=== PATIENT | female | born 2000 | race African-American/Black ===

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

== ENCOUNTER → 2021-03-16 | Outpatient (CLI) | payer OTHER ==
--- NOTE | 2021-03-17 08:20 | MR ---
EXAMINATION TYPE: MR brain wo con DATE OF EXAM: 03/16/2021 COMPARISON: NONE HISTORY: Hallucinations A/V + tactile TECHNIQUE: Multiplanar, multisequence imaging of the brain and brainstem is performed without IV cont rast. FINDINGS: Diffusion weighted images demonstrate no evidence of a recent infarct or other diffusion abnormality. There is no extraaxial fluid collection or significant white matter signal abnormality. The ventricu lar system and cisternal spaces are normal in size and appearance. The brain volume is age appropria te. Midline structures demonstrate normal morphology. The cerebellar tonsils are slightly low-lying exte nding into foramen magnum but no greater than 5 mm inferior descent identified to diagnose Chiari typ e I malformation. Normal vascular flow voids are present. The visualized sinuses are clear. There is artifact at level of the bilateral globes. IMPRESSION: Slightly low-lying cerebellar tonsils without Chiari type I malformation
== END | disposition home or self-care (01) ==
LOC: RADMRIMAIN 18:33
PROVIDERS: ATTEND Family Medicine
DX: G93.5 Compression of brain (principal)
CPT/HCPCS: 70551

== ENCOUNTER 2021-04-07 18:24 | Inpatient (IN) | payer MEDICAID, OTHER ==
--- NOTE | 2021-04-07 21:40 | ED ---
General Adult HPI - General Chief complaint: Psychiatric Symptoms Stated complaint: Mental Health Time Seen by Provider: 04/07/21 20:54 Source: patient Mode of arrival: ambulatory Limitations: no limitations - History of Present Illness Initial comments: Dictation was produced using Piazza dictation software. please excuse any grammatical, word or spelling errors. Chief Complaint: 20-year-old female presents to the emergency department for depression or suicidal ideation History of Present Illness: Patient is a 20-year-old female she states she has a past medical history of schizophrenia. Over the last several days she's been feeling depressed. She states she's never been admitted to [facility]. in the past. Patient states she initially had a plan to harm herself but doesn't have a plan currently. She denies homicidality. Patient denies any visual or auditory hallucinations at this moment. Patient has no medical complaints. The ROS documented in this emergency department record has been reviewed and confirmed by me. Those systems with pertinent positive or negative responses have been documented in the HPI. All other systems are other negative and/or noncontributory. PHYSICAL EXAM: General Impression: Alert and oriented x3, not in acute distress HEENT: Normocephalic atraumatic, extra-ocular movements intact, pupils equal and reactive to light bilaterally, mucous membranes moist. Cardiovascular: Heart regular rate and rhythm Chest: Able to complete full sentences, no retractions, no tachypnea Musculoskeletal: Pulses present and equal in all extremities, no peripheral edema Motor: no focal deficits noted Neurological: CN II-XII grossly intact, no focal motor or sensory deficits noted Skin: Intact with no visualized rashes Psych: Normal affect and mood ED course: 20-year-old female presents to the emergency department for suicidal ideation. She reports history of schizophrenia. Vital signs On arrival are within acceptable limits. No medical complaints. Physical examination normal. Patient evaluated by EPS and admitted to inpatient psychiatry unit. - Related Data Previous Rx's Medication Instructions Recorded ARIPiprazole [Abilify] 5 mg PO DAILY 14 Days tab 04/13/21 DULoxetine HCL [Cymbalta] 60 mg PO DAILY 14 Days 04/13/21 Mirtazapine [Remeron] 7.5 mg PO HS 14 Days tab 04/13/21 Nicotine 21Mg/24Hr Patch [Habitrol] 1 patch TRANSDERM DAILY 14 Days 04/13/21 patch diphenhydrAMINE [Benadryl] 25 mg PO HS PRN 14 Days cap 04/13/21 hydrOXYzine pamoate [Vistaril] 25 mg PO TID PRN 14 Days cap 04/13/21 Allergies Allergy/AdvReac Type Severity Reaction Status Date / Time Penicillins Allergy Rash/Hives Verified 04/07/21 21:39 Review of Systems ROS Statement: Those systems with pertinent positive or pertinent negative responses have been documented in the HPI. ROS Other: All systems not noted in ROS Statement are negative. Past Medical History Past Medical History: Asthma History of Any Multi-Drug Resistant Organisms: None Reported Past Surgical History: No Surgical Hx Reported Past Anesthesia/Blood Transfusion Reactions: No Reported Reaction Past Psychological History: Anxiety, Depression, Schizophrenia Smoking Status: Former smoker Past Alcohol Use History: None Reported Past Drug Use History: None Reported General Exam Limitations: no limitations Course Vital Signs 04/07/21 19:33 Temperature 98.6 F Pulse Rate 89 Respiratory 18 Rate Blood Pressure 132/76 O2 Sat by Pulse 95 Oximetry Medical Decision Making - Lab Data Result diagrams: 04/09/21 07:00 Lab Results 04/07/21 04/08/21 Range/Units 22:38 01:25 Urine HCG, Qual Not Detected (Not Detectd) Coronavirus (PCR) Not Detected (Not Detectd) Disposition Clinical Impression: Depression Disposition: ADMITTED IP TO THIS HOSP Condition: Stable
[2021-04-08] MEDS ORDERED: ACETAMINOPHEN TAB 325 MG TAB PO PRN (04:00)
[2021-04-08] MEDS ORDERED: HALOPERIDOL LACTATE 5 MG/ML 1 ML VIAL IM PRN (04:00)
[2021-04-08] MEDS ORDERED: LORazepam 1 MG TAB PO PRN (04:00)
[2021-04-08] MEDS ORDERED: MAG HYDROX/AL HYDROX/SIMETH 30 ML CUP PO PRN (04:00)
[2021-04-08] MEDS ORDERED: MAGNESIUM HYDROXIDE 2,400 MG/10 ML CUP PO PRN (09:00)
[2021-04-08] MEDS: NICOTINE 21MG/24HR PATCH TRANSDERM SCH (11:41)
[2021-04-08] MEDS: haloperidoL 1 MG TAB PO PRN (13:16)
[2021-04-08] MEDS ORDERED: busPIRone HCl 5 MG TAB PO PRN (14:17)
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
[2021-04-08] MEDS: ARIPiprazole 5 MG TAB PO SCH (17:16)
[2021-04-08] MEDS ORDERED: MIRTAZAPINE 15 MG TAB PO SCH (21:00)
[2021-04-08] MEDS ORDERED: risperiDONE 0.5 MG TAB PO SCH (21:00)
--- NOTE | 2021-04-09 00:09 | P.CONS ---
History of Present Illness - Reason for Consult Consult date: 04/08/21 medical eval - Chief Complaint suicidal - History of Present Illness Myrtle Quiñones is a 20 yo F with PMH of psychosis, follows with [facility] who came to the ED on the recommendation of her radiological defense officer. She states she has been having suicidal feelings and that she would be better off now around as well as significant anxiety. She denies any physical symptoms today, no chest pain, dizziness, headache, vision change, shortness of breath. On presentation vitals stable, urine preg and Covid negative. Review of Systems All systems: negative Constitutional: Denies chills, Denies fever Eyes: denies blurred vision, denies pain Ears, nose, mouth and throat: Denies headache, Denies sore throat Cardiovascular: Denies chest pain, Denies shortness of breath Respiratory: Denies cough Gastrointestinal: Denies abdominal pain, Denies diarrhea, Denies nausea, Denies vomiting Genitourinary: Denies dysuria, Denies hematuria Musculoskeletal: Denies myalgias Integumentary: Denies pruritus, Denies rash Neurological: Denies numbness, Denies weakness Psychiatric: Reports as per HPI, Reports anxiety, Reports depression Endocrine: Denies fatigue, Denies weight change Past Medical History Past Medical History: Asthma History of Any Multi-Drug Resistant Organisms: None Reported Past Surgical History: No Surgical Hx Reported Past Anesthesia/Blood Transfusion Reactions: No Reported Reaction Past Psychological History: Anxiety, Depression, Schizophrenia Smoking Status: Vaper Past Alcohol Use History: None Reported Additional Past Alcohol Use History / Comment(s): Patient vaped for approximitley two months, stopped in August 2019 Past Drug Use History: None Reported Medications and Allergies Home Medications Medication Instructions Recorded Confirmed Type risperiDONE [RisperDAL] 0.5 mg PO HS 04/07/21 04/07/21 History Allergies Allergy/AdvReac Type Severity Reaction Status Date / Time Penicillins Allergy Rash/Hives Verified 04/07/21 21:39 Physical Exam Vitals: Vital Signs Temp Pulse Resp BP 04/08/21 06:05 97.8 F 76 16 118/58 General: well nourished, well developed, NAD. Vitals reviewed Eyes: PERRL, EOMI, conjunctiva normal HENT: normocephalic, mucus membranes moist Neck: supple, no JVD Lungs: normal respiratory effort, no wheezes or rales CV: Regular rate and rhythm, no murmur. Peripheral pulses 2+ Abdomen: soft, nondistended, no organomegaly Lymph: no cervical or axillary LAD Skin: warm and dry. Neuro: A&Ox3, flattened affect, poor eye contact Assessment and Plan Plan: 1. Suicidal, major depression. Management per psychiatry. Agree with everardo hall and [place]. Continue to follow
[2021-04-09 07:56] LABS: ALT 12 U/L (4-34); AST 25 U/L (14-36); African American GFR (CKD) >90 (>60 ml/min/1.73 sqM); Albumin 4.7 g/dL (3.5-5.0); Alkaline Phosphatase 61 U/L (38-126); Anion Gap 8 mmol/L; Blood Urea Nitrogen 10 mg/dL (7-17); Calcium 9.7 mg/dL (8.4-10.2); Carbon Dioxide 21 mmol/L (22-30); Chloride 107 mmol/L (98-107); Glucose 77 mg/dL (74-99); Non-African American GFR(CKD) >90 (>60 ml/min/1.73 sqM); Potassium 4.1 mmol/L (3.5-5.1); Sodium 136 mmol/L (137-145); Total Bilirubin 1.2 mg/dL (0.2-1.3); Total Protein 8.2 g/dL (6.3-8.2)
[2021-04-09] MEDS: NICOTINE 21MG/24HR PATCH TRANSDERM SCH (08:41)
[2021-04-09] MEDS: ARIPiprazole 5 MG TAB PO SCH (08:42)
[2021-04-09] MEDS ORDERED: ARIPiprazole 5 MG TAB PO ONE (09:59)
--- NOTE | 2021-04-09 13:13 | P.PN ---
Progress Note - Text Progress Note Date: 04/09/21 Interval History: Patient was seen wandering the hallways and was directable and agreeable to lorelei vargas with automobile service writer in the office. Patient appears to have an improvement in her hygiene and grooming today. She states that she has been going to some groups and attending to participate. She states that the hallucinations have improved significantly since being on the unit. She states that she is tolerating the Abilify fairly well at this time. She was agreeable have it increased to 5 mg today. Claims that she is feeling less irritable and more stable in terms of her mood. She continues to state that she does have anxiety during the day. She claims that she did not sleep well last night with the Remeron. She was agreeable to try trazodone tonight. Has a fair appetite. At this time patient denies any suicidal or homical ideations, intent or plan. Patient denies any auditory, visual hallucinations and denies any paranoia or delusions. Patient denies any side effects from the medications and has been compliant with meds. Mental Status Exam: General Appearance: Patient appears to be short in stature, curly hair, wearing glasses, nasal piercing, stated age is alert, directable, and attempts to cooperate. Patient appears to have fair hygiene and grooming. Behavior: Patient is seated without any agitated behavior. Attempts to cooperate. Speech: Patient's speech is fluent and nonpressured. Mood/Affect: Patient reports their mood is improving mildly, affect is congruent and constricted. Suicidality/Homicidality: Patient denies having any homicidal ideation intent or plan. Denies any suicidal ideations intent or plan Perceptions: Patient denies any visual hallucinations and denies any auditory hallucinations Though content/process: There is no evidence of any delusional thought content and thought process is linear and goal-directed. Focused on discharge. Memory and concentration: AOX3, grossly intact for the purposes of this session Judgment and insight: Chronically poor, improving mildly. IMPRESSIONS: Schizoaffective disorder, depressive type Generalized anxiety disorder Cannabis use disorder mild Nicotine dependence Plan: -Patient continues to meet criteria for inpatient psychiatric admission for symptom stabilization and safety. Patient has signed adult voluntary form and medication consent and was placed in patient's chart. -Medications: Increased Abilify to 5 mg daily for mood stabilization/psychosis. Discontinue Remeron and replaced with trazodone 50 mg daily at bedtime for insomnia/mood. BuSpar 15 mg 3 times a day when necessary for anxiety. -When necessary Ativan and Haldol for agitation/aggression. -NRT - nicotine patch -SW on board for discharge planning. Encouraged the patient to participate in milieu. likely discharge tomorrow back home.
[2021-04-09] MEDS ORDERED: traZODone HCL 50 MG TAB PO SCH (21:00)
[2021-04-10] MEDS: LORazepam 2 MG/ML INJ IM PRN (04:59)
[2021-04-10] MEDS: NICOTINE 21MG/24HR PATCH TRANSDERM SCH (08:01)
[2021-04-10] MEDS: ARIPiprazole 5 MG TAB PO SCH (08:01)
[2021-04-10] MEDS ORDERED: busPIRone HCl 5 MG TAB PO SCH (10:45)
--- NOTE | 2021-04-10 13:14 | P.PN ---
Progress Note - Text Progress Note Date: 04/10/21 Interval History: Patient was seen wandering the hallways and was directable and agreeable to sp alicia with machine sign writer in the office. Patient claims that she was feeling very anxious last night and got very poor sleep. She states that she required a injection dose of Ativan last night and only slept minimally afterwards. She claims that she is feeling irritable and was tearful at times during the interview. She claims that she feels the medications have not been helping. She has been going to some groups. She was demanding and argumentative with machine sign writer today and demanded to be discharged. She was tearful afterwards. She states that she saw "shadows in the bathroom" last night and was scared. She appears to have poor insight today and was more irritable. Has a fair appetite. At this time patient denies any suicidal or homical ideations, intent or plan. Patient denies any auditory and denies any paranoia or delusions. Patient denies any side effects from the medications and has been compliant with meds. Mental Status Exam: General Appearance: Patient appears to be short in stature, curly hair, wearing glasses, nasal piercing, stated age is alert, difficult to redirect today. Argumentative and demanding. Patient appears to have fair hygiene and grooming. Behavior: Patient is seated without any agitated behavior. Argumentative and demanding. Tearful. Speech: Patient's speech is fluent and nonpressured. Mood/Affect: Patient reports their mood is the same", affect is congruent Suicidality/Homicidality: Patient denies having any homicidal ideation intent or plan. Denies any suicidal ideations intent or plan Perceptions: Patient denies any visual hallucinations and denies any auditory hallucinations Though content/process: There is no evidence of any delusional thought content and thought process is linear and goal-directed. Focused on discharge. Poor insight. Memory and concentration: AOX3, grossly intact for the purposes of this session Judgment and insight: Chronically poor IMPRESSIONS: Schizoaffective disorder, depressive type Generalized anxiety disorder Cannabis use disorder mild Nicotine dependence Plan: -Patient continues to meet criteria for inpatient psychiatric admission for symptom stabilization and safety. Patient has signed adult voluntary form and medication consent and was placed in patient's chart. -Medications: Abilify 5 mg daily for mood stabilization/psychosis, can possibly be increased over the weekend to 7.5 mg if patient is still not stable with regards to mood or psychotic sx. increase trazodone 100 mg daily at bedtime for insomnia/mood. added benadryl 25 mg qhs prn for sleep. BuSpar 15 mg two times a day when necessary for anxiety. vistaril prn for anxiety. -When necessary Ativan and Haldol for agitation/aggression. -NRT - nicotine patch -SW on board for discharge planning. Encouraged the patient to participate in milieu. if patient improves over the weekend then likely d/c tuesday back home.
[2021-04-10] MEDS: hydrOXYzine pamoate 25 MG CAP PO PRN (14:54)
[2021-04-10] MEDS: DULoxetine HCL 30 MG CAPSULE.DR PO SCH (15:31)
[2021-04-10] MEDS: hydrOXYzine pamoate 25 MG CAP PO SCH ×2 (16:09→20:15)
[2021-04-10] MEDS ORDERED: traZODone HCL 100 MG TAB PO SCH (21:00)
[2021-04-10] MEDS ORDERED: diphenhydrAMINE 25 MG CAP PO SCH (21:00)
[2021-04-10] MEDS: diphenhydrAMINE 25 MG CAP PO PRN (21:59)
[2021-04-11] MEDS: NICOTINE 21MG/24HR PATCH TRANSDERM SCH (07:39)
[2021-04-11] MEDS: hydrOXYzine pamoate 25 MG CAP PO SCH ×3 (07:39→20:59)
[2021-04-11] MEDS: ARIPiprazole 5 MG TAB PO SCH (07:39)
[2021-04-11] MEDS: DULoxetine HCL 30 MG CAPSULE.DR PO SCH (07:39)
[2021-04-11] MEDS: hydrOXYzine pamoate 25 MG CAP PO PRN (12:03)
--- NOTE | 2021-04-11 13:29 | P.PN ---
Progress Note - Text Progress Note Date: 04/11/21 Interval history: Patient was seen and was directable and agreeable to speak with life underwriter. Reports some mood swings: Intermittent anger followed by happiness. Denies significant depression, anxiety, low appetite. Reports poor sleep, and states that 2 doses of benadryl did not help with sleep. At this time patient denies any suicidal or homicidal ideations intent or plan. Denies any Auditory or visual hallucinations. Patient denies any side effects from the medications and has been compliant with meds. Mental status exam: General Appearance: [Patient appears to be stated age is alert, directable, and cooperative.] Behavior: [No agitated behavior. Patient is calm and directable] Speech: Patient's speech is fluent and nonpressured. Mood/Affect: Mood is "calm", affect is congruent and constricted. Suicidality/Homicidality: Patient denies having any suicidal or homicidal ideation intent or plan. Perceptions: Patient denies any auditory or visual hallucinations. Though content/process: [There is no evidence of any delusional thought content and thought process is linear and goal-directed.] Memory and concentration: AOX3, grossly intact for the purposes of this session Judgment and insight: improving mildly Assessment/Plan: Continue with current diagnosis. Patient continues to meet criteria for inpatient psychiatric admission for symptom stabilization and safety. Med adjustments: d/c benadryl qhs and start mirtazapine 7.5 mg qhs Monitor for medication compliance and for any psychotropic medication side effects. Will continue to monitor ongoing response to treatment. Encouraged participation in milieu.
[2021-04-11] MEDS: MIRTAZAPINE 15 MG TAB PO SCH (20:59)
[2021-04-12] MEDS: NICOTINE 21MG/24HR PATCH TRANSDERM SCH (08:22)
[2021-04-12] MEDS: ARIPiprazole 5 MG TAB PO SCH (08:22)
[2021-04-12] MEDS: DULoxetine HCL 30 MG CAPSULE.DR PO SCH (08:22)
[2021-04-12] MEDS: hydrOXYzine pamoate 25 MG CAP PO SCH ×3 (08:22→19:40)
--- NOTE | 2021-04-12 11:40 | P.PN ---
Progress Note - Text Interval history: Patient was seen in the conference room and was directable and agreeable to speak with comic book writer. States that her anxiety, sleep sleep, and mood swings are improving. States that she slept very well with the mirtazapine.. At this time patient denies any suicidal or homicidal ideations intent or plan. Denies any Auditory or visual hallucinations. Patient denies any side effects from the medications and has been compliant with meds. Mental status exam: General Appearance: [Patient appears to be stated age is alert, directable, and cooperative.] Behavior: [No agitated behavior. Patient is calm and directable] Speech: Patient's speech is fluent and nonpressured. Mood/Affect: Mood is "good", affect is congruent and full range Suicidality/Homicidality: Patient denies having any suicidal or homicidal ideation intent or plan. Perceptions: Patient denies any auditory or visual hallucinations. Though content/process: [There is no evidence of any delusional thought content and thought process is linear and goal-directed.] Memory and concentration: AOX3, grossly intact for the purposes of this session Judgment and insight: improving mildly Assessment/Plan: Continue with current diagnosis. Patient continues to meet criteria for inpatient psychiatric admission for symptom stabilization and safety.[Patient will be maintained on current psychotropic medication regimen.] Monitor for medication compliance and for any psychotropic medication side effects. Will continue to monitor ongoing response to treatment. Encouraged participation in milieu.
[2021-04-12] MEDS: LORazepam 2 MG/ML INJ IM PRN ×2 (12:05→21:30)
[2021-04-12] MEDS: MIRTAZAPINE 15 MG TAB PO SCH (19:39)
[2021-04-12] MEDS: diphenhydrAMINE 25 MG CAP PO PRN (19:40)
[2021-04-12] MEDS: hydrOXYzine pamoate 25 MG CAP PO PRN (20:46)
[2021-04-12] MEDS: haloperidoL 1 MG TAB PO PRN (20:46)
[2021-04-13 07:05] VITALS: BP 108/55; PULSE 73; RESP 16; TEMP 97.6
[2021-04-13] MEDS: NICOTINE 21MG/24HR PATCH TRANSDERM SCH (08:41)
[2021-04-13] MEDS: ARIPiprazole 5 MG TAB PO SCH (08:41)
[2021-04-13] MEDS: hydrOXYzine pamoate 25 MG CAP PO SCH (09:04)
[2021-04-13] MEDS: DULoxetine HCL 30 MG CAPSULE.DR PO SCH (09:05)
[2021-04-13] MEDS ORDERED: DULoxetine HCL 30 MG CAPSULE.DR PO ONE (10:34)
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
[2021-04-14] MEDS ORDERED: DULoxetine HCL 60 MG CAPSULE.DR PO SCH (09:00)
== END 2021-04-13 12:39 | disposition home or self-care (01) | DRG 885 ==
LOC: EC 18:24 → 3MHU 04-08 02:11
PROVIDERS: ADMIT Psychiatry & Neurology Psychiatry; ATTEND Psychiatry & Neurology Psychiatry
DX: F25.1 Schizoaffective disorder, depressive type (principal); R45.851 Suicidal ideations; F60.89 Other specific personality disorders; Z20.822 Contact with and (suspected) exposure to COVID-19; F41.0 Panic disorder [episodic paroxysmal anxiety]; F41.1 Generalized anxiety disorder; F12.10 Cannabis abuse, uncomplicated; J45.909 Unspecified asthma, uncomplicated; F17.290 Nicotine dependence, other tobacco product, uncomplicated; Z79.899 Other long term (current) drug therapy; Z65.3 Problems related to other legal circumstances; Z71.51 Drug abuse counseling and surveillance of drug abuser; Z71.41 Alcohol abuse counseling and surveillance of alcoholic; Z88.0 Allergy status to penicillin; Z81.8 Family history of other mental and behavioral disorders
CPT/HCPCS: 80053; 81025; 82075; 83036; 84443; 87635; 99285

== ENCOUNTER 2021-05-06 07:31 | Emergency (ER) | payer OTHER ==
[2021-05-06 07:36] VITALS: BP 141/96; PULSE 50; RESP 18; TEMP 97
[2021-05-06] MEDS ORDERED: LIDOCAINE 1% INJ 10MG/ML (20 ML MDV) SQ ONE (07:43)
[2021-05-06] MEDS ORDERED: BACITRACIN OINT 1 EACH PACKET TOPICAL ONE (07:44)
--- NOTE | 2021-05-06 08:12 | XR ---
EXAMINATION TYPE: XR forearm RT DATE OF EXAM: 05/06/2021 CLINICAL HISTORY: Pain and laceration after fall injury. TECHNIQUE: Two views of the right forearm are obtained. COMPARISON: None. FINDINGS: Linear lucency consistent with laceration injury along the radial volar surface of the dist al forearm with punctate densities possible soft tissue foreign bodies is identified. There is no acu te fracture or dislocation seen in the right radius or ulna. The right elbow and wrist joints appear within normal limits. IMPRESSION: As above.
--- NOTE | 2021-05-06 08:24 | ED ---
Wound/Laceration HPI - General Chief Complaint: Wound/Laceration Stated Complaint: Fall/Rt Arm Lac Time Seen by Provider: 05/06/21 07:40 Source: patient, RN notes reviewed Mode of arrival: ambulatory Limitations: no limitations - History of Present Illness Initial Comments: 20-year-old female presents emergency Department with chief complaint of laceration, fall. She states that she has a broken railing on her. States that she slipped causing a laceration to her right forearm her tetanus is up-to-date. Patient states is a large laceration to her right wrist she has no paresthesias she does have full range of motion she denies any other associated injury including head injury, neck pain, back pain, hip pain. She does have an abrasion to her left foot fourth and fifth digit. - Related Data Previous Rx's Medication Instructions Recorded ARIPiprazole [Abilify] 5 mg PO DAILY 14 Days tab 04/13/21 DULoxetine HCL [Cymbalta] 60 mg PO DAILY 14 Days 04/13/21 Mirtazapine [Remeron] 7.5 mg PO HS 14 Days tab 04/13/21 Nicotine 21Mg/24Hr Patch [Habitrol] 1 patch TRANSDERM DAILY 14 Days 04/13/21 patch diphenhydrAMINE [Benadryl] 25 mg PO HS PRN 14 Days cap 04/13/21 hydrOXYzine pamoate [Vistaril] 25 mg PO TID PRN 14 Days cap 04/13/21 Allergies Allergy/AdvReac Type Severity Reaction Status Date / Time Penicillins Allergy Rash/Hives Verified 05/06/21 07:36 Review of Systems ROS Statement: Those systems with pertinent positive or pertinent negative responses have been documented in the HPI. ROS Other: All systems not noted in ROS Statement are negative. Past Medical History Past Medical History: Asthma History of Any Multi-Drug Resistant Organisms: None Reported Past Surgical History: No Surgical Hx Reported Past Anesthesia/Blood Transfusion Reactions: No Reported Reaction Past Psychological History: Anxiety, Depression, Schizophrenia Smoking Status: Former smoker Past Alcohol Use History: None Reported Past Drug Use History: None Reported General Exam Limitations: no limitations General appearance: alert, in no apparent distress Head exam: Present: atraumatic, normocephalic, normal inspection Eye exam: Present: normal appearance, PERRL, EOMI. Absent: scleral icterus, conjunctival injection, periorbital swelling ENT exam: Present: normal exam, mucous membranes moist Neck exam: Present: normal inspection, full ROM. Absent: tenderness, meningismus, lymphadenopathy Respiratory exam: Present: normal lung sounds bilaterally. Absent: respiratory distress, wheezes, rales, rhonchi, stridor Cardiovascular Exam: Present: regular rate, normal rhythm, normal heart sounds. Absent: systolic murmur, diastolic murmur, rubs, gallop, clicks Extremities exam: Present: other (Left foot fourth and fifth digit there is skin avulsion, abrasion noted, right distal forearm there is a 4 cm very irregular laceration with no tendon involvement patient is full range of motion of all digits, wrist.) Back exam: Present: full ROM. Absent: tenderness, paraspinal tenderness, vertebral tenderness Neurological exam: Present: alert, oriented X3, CN II-XII intact Skin exam: Present: warm, dry, intact, normal color. Absent: rash Course Vital Signs 05/06/21 07:32 Temperature 97.0 F L Pulse Rate 50 L Respiratory 18 Rate Blood Pressure 141/96 O2 Sat by Pulse 100 Oximetry Procedures - Laceration Laceration #1 Consent Obtained: verbal consent Indication: laceration Site: upper extremity (Right forearm) Size (cm): 4 Description: irregular, foreign body Depth: simple, single layer Anesthetic Used: lidocaine 1%, without epi Anesthesia Technique: local infiltration Amount (mls): 6 Pre-repair: wound explored, irrigated extensively, deep structures intact, foreign body removed (Small paint chips at surface were removed, wound was thoroughly cleaned) Type of Sutures: nylon Size of Sutures: 4-0 Number of Sutures: 7 Technique: simple, interrupted Patient Tolerated Procedure: well, no complications Medical Decision Making - Medical Decision Making Laceration was thoroughly cleaned, irrigated, foreign bodies were removed as seen an x-ray patient laceration was closed using sutures patient provided wound care instructions and return parameters. Disposition Clinical Impression: Laceration of right forearm Disposition: HOME SELF-CARE Condition: Stable Instructions (If sedation given, give patient instructions): Care For Your Stitches (ED), Laceration (ED) Additional Instructions: Have sutures removed in 10-14 days Please return to the Emergency Department if symptoms worsen or any other concerns. Is patient prescribed a controlled substance at d/c from ED?: No Referrals: Patti Prakash MD [Primary Care Provider] - 1-2 days Time of Disposition: 08:24
[2021-05-06] MEDS ORDERED: DIPH,PERTUS(ACELL)TETVAC-LF 0.5 ML VIAL IM ONE (09:41)
== END 2021-05-06 08:30 | disposition home or self-care (01) ==
LOC: EC 07:31
DX: S51.811A Laceration without foreign body of right forearm, initial encounter (principal); J45.909 Unspecified asthma, uncomplicated; F41.9 Anxiety disorder, unspecified; F32.A Depression, unspecified; F25.9 Schizoaffective disorder, unspecified; Z87.891 Personal history of nicotine dependence; Z88.0 Allergy status to penicillin; W01.0XXA Fall on same level from slipping, tripping and stumbling without subsequent striking against object, initial encounter
CPT/HCPCS: 99283; 12032; 73090; J2001

== ENCOUNTER 2021-06-18 10:26 | Emergency (ER) | payer OTHER ==
[2021-06-18 10:35] VITALS: RESP 16; TEMP 97.7
[2021-06-18] MEDS ORDERED: SODIUM CHLORIDE 0.9% 1,000 ML IV STA (10:55)
[2021-06-18] MEDS ORDERED: LORazepam 1 MG TAB PO STA (10:58)
--- NOTE | 2021-06-18 11:30 | ED ---
Dizziness HPI - General Chief Complaint: Syncope Stated Complaint: dizziness Time Seen by Provider: 06/18/21 10:44 Source: patient, family, EMS, RN notes reviewed Mode of arrival: EMS Limitations: no limitations - History of Present Illness Initial Comments: This is a 20-year-old female who presents the emergency department for a near- syncopal episode. States that she has these episodes at least twice a week, and this has been a long-standing problem. When these episodes occur, she experiences ringing in her ears, lightheadedness, dizziness, and visual changes. Dizziness does not change with position and she denies any room spinning sensations. She also feels shortness of breath and has palpitations with these episodes. These episodes always last different amounts of time, this episode lasted approximately 4.5 minutes. States that when she has these episodes, she does almost pass out. He did have an MRI of her brain on 03/16/2021 for these symptoms. This revealed slightly low lying cerebellar tonsils, without Chiari type one malformation. She does have follow-up appointments with neurology to have additional testing on an outpatient basis. About 3 months ago, she wore a Holter monitor. She was told that her heart rate is slow in the morning, but was otherwise unremarkable. Overall, this episode was not any worse than prior episodes. Denies any fevers, chills, sore throat, cough, dyspnea, chest pain, palpitations, abdominal pain, nausea, vomiting, diarrhea, back pain, or headaches. MD Complaint: dizziness, lightheadedness, near syncope Timing: sudden onset Description: lightheadedness History of Same: Yes History of Trauma: No - Related Data Home Medications Medication Instructions Recorded Confirmed QUEtiapine FUMARATE [SEROquel XR] 300 mg PO HS 06/18/21 06/18/21 Topiramate [Topamax] 25 mg PO DAILY 06/18/21 06/18/21 hydrOXYzine pamoate [Vistaril] 25 - 50 mg PO TID PRN 06/18/21 06/18/21 Allergies Allergy/AdvReac Type Severity Reaction Status Date / Time Penicillins Allergy Rash/Hives Verified 06/18/21 10:35 Review of Systems ROS Statement: Those systems with pertinent positive or pertinent negative responses have been documented in the HPI. ROS Other: All systems not noted in ROS Statement are negative. Past Medical History Past Medical History: Asthma History of Any Multi-Drug Resistant Organisms: None Reported Past Surgical History: No Surgical Hx Reported Past Anesthesia/Blood Transfusion Reactions: No Reported Reaction Past Psychological History: Anxiety, Depression, Schizophrenia Smoking Status: Former smoker Past Alcohol Use History: None Reported Past Drug Use History: Marijuana General Exam Limitations: no limitations General appearance: alert, other (Drowsy) Head exam: Present: atraumatic, normocephalic, normal inspection Neck exam: Present: normal inspection. Absent: tenderness, meningismus, lymphadenopathy Respiratory exam: Present: normal lung sounds bilaterally. Absent: respiratory distress, wheezes, rales, rhonchi, stridor Cardiovascular Exam: Present: regular rate, normal rhythm, normal heart sounds. Absent: systolic murmur, diastolic murmur, rubs, gallop, clicks Neurological exam: Present: alert, oriented X3, CN II-XII intact Psychiatric exam: Present: normal mood, flat affect Skin exam: Present: warm, dry, intact, normal color. Absent: rash Course Vital Signs 06/18/21 06/18/21 10:27 12:34 Temperature 97.7 F Pulse Rate 59 L 59 L Respiratory 16 16 Rate Blood Pressure 111/58 111/58 O2 Sat by Pulse 99 99 Oximetry EKG Findings - EKG Comments: EKG Findings:: Sinus bradycardia. Ventricular rate 58 bpm, MD interval 159 ms, QRS duration 86 ms, QTC 431 ms. Medical Decision Making - Medical Decision Making This is a 20-year-old female who presents to the emergency department for a near syncopal episode. This is an ongoing and chronic issue for the patient, and today symptoms were not any worse than usual. Her potassium was low at 3.1. Potassium replaced with 20 mEq PO. Chest x-ray revealed no abnormalities. Lab work does revealed an elevated d-dimer. CTA of the chest obtained. This revealed no actionable findings. Patient advised that the workup at this time did not reveal any cause of her ongoing symptoms. She is advised to follow-up with her primary care provider and neurologist as an outpatient for more in de pth testing. Return precautions reviewed in depth, the patient is instructed to return to the emergency department with any new, worsening, or concerning symptoms. Patient verbalized understanding. This case was discussed in detail with the attending ED physician. Presentation, findings, and treatment plan discussed in detail as well. - Lab Data Result diagrams: 06/18/21 11:09 Lab Results 06/18/21 06/18/21 06/18/21 Range/Units 11:00 11:09 11:09 PT 10.8 (9.0-12.0) sec INR 1.0 (<1.2) APTT 20.2 L (22.0-30.0) sec D-Dimer 0.64 H (<0.60) mg/L FEU Sodium 138 (137-145) mmol/L Potassium 3.1 L (3.5-5.1) mmol/L Chloride 105 (98-107) mmol/L Carbon Dioxide 21 L (22-30) mmol/L Anion Gap 12 mmol/L BUN 6 L (7-17) mg/dL Creatinine 0.57 (0.52-1.04) mg/dL Est GFR (CKD-EPI)AfAm >90 (>60 ml/min/1.73 sqM) Est GFR (CKD-EPI)NonAf >90 (>60 ml/min/1.73 sqM) Glucose 126 H (74-99) mg/dL Calcium 8.7 (8.4-10.2) mg/dL Total Bilirubin 0.4 (0.2-1.3) mg/dL AST 25 (14-36) U/L ALT 13 (4-34) U/L Alkaline Phosphatase 71 (38-126) U/L Troponin I (0.000-0.034) ng/mL Total Protein 7.2 (6.3-8.2) g/dL Albumin 4.3 (3.5-5.0) g/dL TSH 2.430 (0.465-4.680) mIU/L Urine Color Urine Appearance (Clear) Urine pH (5.0-8.0) Ur Specific Trevor (1.001-1.035) Urine Protein (Negative) Urine Glucose (UA) (Negative) Urine Ketones (Negative) Urine Blood (Negative) Urine Nitrite (Negative) Urine Bilirubin (Negative) Urine Urobilinogen (<2.0) mg/dL Ur Leukocyte Esterase (Negative) Urine RBC (0-5) /hpf Urine WBC (0-5) /hpf Ur Squamous Epith Cells (0-4) /hpf Urine Bacteria (None) /hpf Urine Mucus (None) /hpf Urine HCG, Qual (Not Detectd) Urine Opiates Screen Not Detected (NotDetected) Ur Oxycodone Screen Not Detected (NotDetected) Urine Methadone Screen Not Detected (NotDetected) Ur Propoxyphene Screen Not Detected (NotDetected) Ur Barbiturates Screen Not Detected (NotDetected) U Tricyclic Antidepress Detected H (NotDetected) Ur Phencyclidine Scrn Not Detected (NotDetected) Ur Amphetamines Screen Not Detected (NotDetected) U Methamphetamines Scrn Not Detected (NotDetected) U Benzodiazepines Scrn Not Detected (NotDetected) Urine Cocaine Screen Not Detected (NotDetected) U Marijuana (THC) Screen Detected H (NotDetected) Coronavirus (PCR) (Not Detectd) 06/18/21 06/18/21 06/18/21 Range/Units 11:09 11:09 11:09 PT (9.0-12.0) sec INR (<1.2) APTT (22.0-30.0) sec D-Dimer (<0.60) mg/L FEU Sodium (137-145) mmol/L Potassium (3.5-5.1) mmol/L Chloride (98-107) mmol/L Carbon Dioxide (22-30) mmol/L Anion Gap mmol/L BUN (7-17) mg/dL Creatinine (0.52-1.04) mg/dL Est GFR (CKD-EPI)AfAm (>60 ml/min/1.73 sqM) Est GFR (CKD-EPI)NonAf (>60 ml/min/1.73 sqM) Glucose (74-99) mg/dL Calcium (8.4-10.2) mg/dL Total Bilirubin (0.2-1.3) mg/dL AST (14-36) U/L ALT (4-34) U/L Alkaline Phosphatase (38-126) U/L Troponin I <0.012 (0.000-0.034) ng/mL Total Protein (6.3-8.2) g/dL Albumin (3.5-5.0) g/dL TSH (0.465-4.680) mIU/L Urine Color Yellow Urine Appearance Clear (Clear) Urine pH 6.5 (5.0-8.0) Ur Specific Trevor 1.017 (1.001-1.035) Urine Protein Trace H (Negative) Urine Glucose (UA) Negative (Negative) Urine Ketones Negative (Negative) Urine Blood Large H (Negative) Urine Nitrite Negative (Negative) Urine Bilirubin Negative (Negative) Urine Urobilinogen <2.0 (<2.0) mg/dL Ur Leukocyte Esterase Trace H (Negative) Urine RBC 1 (0-5) /hpf Urine WBC 3 (0-5) /hpf Ur Squamous Epith Cells 2 (0-4) /hpf Urine Bacteria Rare H (None) /hpf Urine Mucus Few H (None) /hpf Urine HCG, Qual Not Detected (Not Detectd) Urine Opiates Screen (NotDetected) Ur Oxycodone Screen (NotDetected) Urine Methadone Screen (NotDetected) Ur Propoxyphene Screen (NotDetected) Ur Barbiturates Screen (NotDetected) U Tricyclic Antidepress (NotDetected) Ur Phencyclidine Scrn (NotDetected) Ur Amphetamines Screen (NotDetected) U Methamphetamines Scrn (NotDetected) U Benzodiazepines Scrn (NotDetected) Urine Cocaine Screen (NotDetected) U Marijuana (THC) Screen (NotDetected) Coronavirus (PCR) (Not Detectd) 06/18/21 Range/Units 11:09 PT (9.0-12.0) sec INR (<1.2) APTT (22.0-30.0) sec D-Dimer (<0.60) mg/L FEU Sodium (137-145) mmol/L Potassium (3.5-5.1) mmol/L Chloride (98-107) mmol/L Carbon Dioxide (22-30) mmol/L Anion Gap mmol/L BUN (7-17) mg/dL Creatinine (0.52-1.04) mg/dL Est GFR (CKD-EPI)AfAm (>60 ml/min/1.73 sqM) Est GFR (CKD-EPI)NonAf (>60 ml/min/1.73 sqM) Glucose (74-99) mg/dL Calcium (8.4-10.2) mg/dL Total Bilirubin (0.2-1.3) mg/dL AST (14-36) U/L ALT (4-34) U/L Alkaline Phosphatase (38-126) U/L Troponin I (0.000-0.034) ng/mL Total Protein (6.3-8.2) g/dL Albumin (3.5-5.0) g/dL TSH (0.465-4.680) mIU/L Urine Color Urine Appearance (Clear) Urine pH (5.0-8.0) Ur Specific Trevor (1.001-1.035) Urine Protein (Negative) Urine Glucose (UA) (Negative) Urine Ketones (Negative) Urine Blood (Negative) Urine Nitrite (Negative) Urine Bilirubin (Negative) Urine Urobilinogen (<2.0) mg/dL Ur Leukocyte Esterase (Negative) Urine RBC (0-5) /hpf Urine WBC (0-5) /hpf Ur Squamous Epith Cells (0-4) /hpf Urine Bacteria (None) /hpf Urine Mucus (None) /hpf Urine HCG, Qual (Not Detectd) Urine Opiates Screen (NotDetected) Ur Oxycodone Screen (NotDetected) Urine Methadone Screen (NotDetected) Ur Propoxyphene Screen (NotDetected) Ur Barbiturates Screen (NotDetected) U Tricyclic Antidepress (NotDetected) Ur Phencyclidine Scrn (NotDetected) Ur Amphetamines Screen (NotDetected) U Methamphetamines Scrn (NotDetected) U Benzodiazepines Scrn (NotDetected) Urine Cocaine Screen (NotDetected) U Marijuana (THC) Screen (NotDetected) Coronavirus (PCR) Not Detected (Not Detectd) - Radiology Data Radiology results: report reviewed, image reviewed Disposition Clinical Impression: Dizziness, Near syncope Disposition: HOME SELF-CARE Instructions (If sedation given, give patient instructions): Near Syncope (ED), Lightheadedness (ED), Meniere Disease (ED), Vertigo (ED), Dizziness (ED) Additional Instructions: Return to the emergency department with any new, worsening, or concerning symptoms. Follow through with outpatient neurology testing. Follow up with your primary care provider in 1-2 days. Is patient prescribed a controlled substance at d/c from ED?: No Referrals: Patti Prakash MD [Primary Care Provider] - 1-2 days
[2021-06-18 11:58] LABS: ALT 13 U/L (4-34); AST 25 U/L (14-36); African American GFR (CKD) >90 (>60 ml/min/1.73 sqM); Albumin 4.3 g/dL (3.5-5.0); Alkaline Phosphatase 71 U/L (38-126); Anion Gap 12 mmol/L; Blood Urea Nitrogen 6 mg/dL (7-17); Calcium 8.7 mg/dL (8.4-10.2); Carbon Dioxide 21 mmol/L (22-30); Chloride 105 mmol/L (98-107); Glucose 126 mg/dL (74-99); Non-African American GFR(CKD) >90 (>60 ml/min/1.73 sqM); Potassium 3.1 mmol/L (3.5-5.1); Sodium 138 mmol/L (137-145); Total Bilirubin 0.4 mg/dL (0.2-1.3); Total Protein 7.2 g/dL (6.3-8.2)
[2021-06-18] MEDS ORDERED: POTASSIUM BICARBONATE/CIT AC 20 MEQ TABLET.EFF PO ONE (11:58)
[2021-06-18 12:05] LABS: Prothrombin Time 10.8 sec (9.0-12.0)
--- NOTE | 2021-06-18 12:07 | XR ---
EXAMINATION TYPE: XR chest 2V DATE OF EXAM: 06/18/2021 COMPARISON: 01/10/2018 TECHNIQUE: PA and lateral views submitted. HISTORY: Fever FINDINGS: The lungs are clear and there is no pneumothorax, pleural effusion, or focal pneumonia. Heart size normal. No overt failure. Interstitium stable from prior exam. IMPRESSION: 1. No acute process.
[2021-06-18 12:13] LABS: Appearance,Urine Clear (Clear); Bacteria,Urine Rare /hpf; Bilirubin,Urine Negative (Negative); Blood,Urine Large (Negative); Color,Urine Yellow; Glucose,Urine (UA) Negative (Negative); Ketones,Urine Negative (Negative); Leukocyte Esterase,Urine Trace (Negative); Mucus,Urine Few /hpf; Nitrite,Urine Negative (Negative); PH, Urine 6.5 (5.0-8.0); Protein,Urine Trace (Negative); RBC,Urine 1 /hpf (0-5); Specific Gravity,Urine 1.017 (1.001-1.035); Squamous Epithelial Cell,Urine 2 /hpf (0-4); Urobilinogen,Urine <2.0 mg/dL (<2.0); WBC,Urine 3 /hpf (0-5)
[2021-06-18 12:16] LABS: Partial Thromboplastin Time 20.2 sec (22.0-30.0)
[2021-06-18 12:45] LABS: Amphetamine Screen,Urine Not Detected (NotDetected); Barbiturate Screen,Urine Not Detected (NotDetected); Benzodiazepines Screen,Urine Not Detected (NotDetected); Cocaine Screen,Urine Not Detected (NotDetected); Methadone Screen, Urine Not Detected (NotDetected); Opiate Screen,Urine Not Detected (NotDetected); Oxycodone Screen, Urine Not Detected (NotDetected); Phencyclidine Screen,Urine Not Detected (NotDetected); Tricyclic Antidepressant,Urine Detected (NotDetected); Urn Cannabinoid Scrn Detected (NotDetected)
--- NOTE | 2021-06-18 13:40 | CT ---
EXAMINATION TYPE: CT chest angio for PE DATE OF EXAM: 06/18/2021 COMPARISON: No previous CT scan is available for comparison HISTORY: Dizziness, chest pains, elevated d-dimer CT DLP: 251.9 mGy.cm. Automated Exposure Control for Dose Reduction was Utilized. TECHNIQUE AND CONTRAST: CTA scan of the thorax is performed with IV Contrast, patient injected with 100, wasted 37 mL of Isov ue 370, pulmonary angiogram protocol. MIP Images are created on an independent workstation and revi ewed. FINDINGS: Artifactual images. No definite filling defect within the pulmonary trunk, main pulmonary arteries, l obar, segmental and proximal subsegmental branches to suggest pulmonary embolism. Distal subsegmental branches are suboptimally assessed. No gross cardiomegaly. Scattered subcentimeter bilateral axillary lymph nodes. Subcarinal soft tissue thickening and to a le sser extent hilar thickening, possibly due to underlying lymphadenopathy, suboptimally assessed by th is CT scan. Follow-up CT scan in 2-3 months can be considered if clinically required. Unremarkable lungs. Patent trachea and main bronchi. No pleural or pericardial effusion. Unremarkable upper abdomen. T3 and T4 upper endplate depression with minimal sclerotic changes, likely chronic, p lease correlate clinically. Unremarkable remainder of the visualized bones. IMPRESSION: With the limitation of the artifactual images, no major or central pulmonary embolism. Incidental fin dings and recommendations as detailed above.
[2021-06-18 13:51] VITALS: BP 100/53; PULSE 68
== END 2021-06-18 14:30 | disposition home or self-care (01) ==
LOC: EC 10:26
DX: R42 Dizziness and giddiness (principal); R55 Syncope and collapse; R79.1 Abnormal coagulation profile; J45.909 Unspecified asthma, uncomplicated; Z87.891 Personal history of nicotine dependence; Z88.0 Allergy status to penicillin; Z20.822 Contact with and (suspected) exposure to COVID-19
CPT/HCPCS: 36415; 93005; 85379; 80053; 84443; 84484; 85610; 85730; 81001; 81025; 80306; 87635; 71046; 71275; 99284; 96360; Q9967

== ENCOUNTER 2021-07-09 13:58 | Emergency (ER) | payer OTHER ==
[2021-07-09 14:15] VITALS: BP 120/72; PULSE 83; RESP 18; TEMP 98
[2021-07-09] MEDS ORDERED: DEXAMETHASONE SOD PHOSPHATE 10 MG/ML 1 ML VIAL IV STA (15:06)
[2021-07-09] MEDS ORDERED: SODIUM CHLORIDE 0.9% 1,000 ML IV STA (15:06)
[2021-07-09] MEDS ORDERED: diphenhydrAMINE 50 MG/ML 1 ML VIAL IVP STA (15:06)
[2021-07-09] MEDS ORDERED: KETOROLAC 15 MG/ML 1 ML VIAL IVP STA (15:06)
[2021-07-09] MEDS ORDERED: METOCLOPRAMIDE 5 MG/ML 2 ML VIAL IVP STA (15:06)
[2021-07-09 15:42] LABS: Basophils % (A) 0 %; Eosinophils % (A) 1 %; HCT 37.5 % (34.0-46.0); HGB 11.9 gm/dL (11.4-16.0); Lymphocytes # (A) 1.7 k/uL (1.0-4.8); Lymphocytes % (A) 34 %; MCH 28.6 pg (25.0-35.0); MCHC 31.7 g/dL (31.0-37.0); Mean Platelet Volume 8.8; Monocytes # (A) 0.5 k/uL (0-1.0); Monocytes % (A) 9 %; Neutrophils # (A) 2.8 k/uL (1.3-7.7); Neutrophils % (A) 55 %; Platelet Count 177 k/uL (150-450); RBC 4.17 m/uL (3.80-5.40); RDW 14.9 % (11.5-15.5); WBC 5.2 k/uL (4.0-11.0)
--- NOTE | 2021-07-09 15:44 | ED ---
Headache HPI - General Chief Complaint: Headache Stated Complaint: Headache,Dizziness Time Seen by Provider: 07/09/21 14:56 Mode of arrival: ambulatory Limitations: no limitations - History of Present Illness Initial Comments: Patient is a 20-year-old female presents to the emergency department with a chief complaint of migraine headache. Patient states her symptoms started this morning. Before the headache patient endorsed dizziness as if the room is spinning which has since resolved. Patient did not lose consciousness. Patient reports a headache in the back of her head, typical of her migraines. Patient sees a neurologist for the first time on July 14. Patient states she recently had an MRI of her brain due to the headaches which she states was negative for chiari 1 malformation. Denies fever, chills, upper respiratory symptoms, shortness of breath, chest pain, and other other concerns. - Related Data Home Medications Medication Instructions Recorded Confirmed QUEtiapine FUMARATE [SEROquel XR] 300 mg PO HS 06/18/21 06/18/21 Topiramate [Topamax] 25 mg PO DAILY 06/18/21 06/18/21 hydrOXYzine pamoate [Vistaril] 25 - 50 mg PO TID PRN 06/18/21 06/18/21 Allergies Allergy/AdvReac Type Severity Reaction Status Date / Time Penicillins Allergy Rash/Hives Verified 06/18/21 10:35 Review of Systems ROS Statement: Those systems with pertinent positive or pertinent negative responses have been documented in the HPI. ROS Other: All systems not noted in ROS Statement are negative. Past Medical History Past Medical History: Asthma History of Any Multi-Drug Resistant Organisms: None Reported Past Surgical History: No Surgical Hx Reported Past Anesthesia/Blood Transfusion Reactions: No Reported Reaction Past Psychological History: Anxiety, Depression, Schizophrenia Smoking Status: Vaper Past Alcohol Use History: None Reported Past Drug Use History: Marijuana General Exam Limitations: no limitations General appearance: alert, in no apparent distress Head exam: Present: atraumatic, normocephalic, normal inspection Eye exam: Present: normal appearance, PERRL, EOMI. Absent: scleral icterus, conjunctival injection, periorbital swelling Neck exam: Present: normal inspection. Absent: tenderness, meningismus, lymphadenopathy Respiratory exam: Present: normal lung sounds bilaterally. Absent: respiratory distress, wheezes, rales, rhonchi, stridor Cardiovascular Exam: Present: regular rate, normal rhythm, normal heart sounds. Absent: systolic murmur, diastolic murmur, rubs, gallop, clicks GI/Abdominal exam: Present: soft, normal bowel sounds. Absent: distended, tenderness, guarding, rebound, rigid Neurological exam: Present: alert, oriented X3, CN II-XII intact Psychiatric exam: Present: normal affect, normal mood Skin exam: Present: warm, dry, intact, normal color. Absent: rash Course Vital Signs 07/09/21 14:12 Temperature 98.0 F Pulse Rate 83 Respiratory 18 Rate Blood Pressure 120/72 O2 Sat by Pulse 98 Oximetry Medical Decision Making - Medical Decision Making This is a 20-year-old who presents for migraine headache. Thorough history and examination were performed. Patient had an episode of dizziness before the headache. She is well-appearing. I will obtain laboratory studies and EKG. EKG shows sinus rhythm. Laboratory studies are unremarkable. Patient given migraine cocktail and fluid bolus. On reevaluation she reports pain has significantly improved. Patient will be discharged home with instruction to follow up at her neurology appointment as scheduled on July 14. Return parameters discussed. Patient verbalizes understanding and is agreeable to this plan. Dr. Maciel is my attending. - Lab Data Result diagrams: 07/09/21 15:19 07/09/21 15:19 Lab Results 07/09/21 07/09/21 Range/Units 15:19 15:19 WBC 5.2 (4.0-11.0) k/uL RBC 4.17 (3.80-5.40) m/uL Hgb 11.9 (11.4-16.0) gm/dL Hct 37.5 (34.0-46.0) % MCV 90.0 (80.0-100.0) fL MCH 28.6 (25.0-35.0) pg MCHC 31.7 (31.0-37.0) g/dL RDW 14.9 (11.5-15.5) % Plt Count 177 (150-450) k/uL MPV 8.8 Neutrophils % 55 % Lymphocytes % 34 % Monocytes % 9 % Eosinophils % 1 % Basophils % 0 % Neutrophils # 2.8 (1.3-7.7) k/uL Lymphocytes # 1.7 (1.0-4.8) k/uL Monocytes # 0.5 (0-1.0) k/uL Eosinophils # 0.0 (0-0.7) k/uL Basophils # 0.0 (0-0.2) k/uL Sodium 139 (137-145) mmol/L Potassium 4.0 (3.5-5.1) mmol/L Chloride 108 H (98-107) mmol/L Carbon Dioxide 24 (22-30) mmol/L Anion Gap 7 mmol/L BUN 8 (7-17) mg/dL Creatinine 0.63 (0.52-1.04) mg/dL Est GFR (CKD-EPI)AfAm >90 (>60 ml/min/1.73 sqM) Est GFR (CKD-EPI)NonAf >90 (>60 ml/min/1.73 sqM) Glucose 58 L (74-99) mg/dL Calcium 9.1 (8.4-10.2) mg/dL Total Bilirubin 0.3 (0.2-1.3) mg/dL AST 24 (14-36) U/L ALT 13 (4-34) U/L Alkaline Phosphatase 68 (38-126) U/L Total Protein 7.4 (6.3-8.2) g/dL Albumin 4.5 (3.5-5.0) g/dL - EKG Data EKG Comments: EKG taken at 15:29 Sinus rhythm Ventricular rate 64 CO interval 154 QRS 85 QTC 403 Disposition Clinical Impression: Migraine Disposition: HOME SELF-CARE Condition: Good Instructions (If sedation given, give patient instructions): Migraine Headache (ED) Additional Instructions: Please increase fluid intake as much as possible. Take Tylenol or Motrin as needed for headache. Follow-up with your neurologist appointment as scheduled on July 14. Return to the emergency department if you experience new, concerning, or worsening symptoms. Is patient prescribed a controlled substance at d/c from ED?: No Referrals: Patti Prakash MD [Primary Care Provider] - 1-2 days Time of Disposition: 17:02
[2021-07-09 15:54] LABS: ALT 13 U/L (4-34); AST 24 U/L (14-36); African American GFR (CKD) >90 (>60 ml/min/1.73 sqM); Albumin 4.5 g/dL (3.5-5.0); Alkaline Phosphatase 68 U/L (38-126); Anion Gap 7 mmol/L; Blood Urea Nitrogen 8 mg/dL (7-17); Calcium 9.1 mg/dL (8.4-10.2); Carbon Dioxide 24 mmol/L (22-30); Chloride 108 mmol/L (98-107); Glucose 58 mg/dL (74-99); Non-African American GFR(CKD) >90 (>60 ml/min/1.73 sqM); Sodium 139 mmol/L (137-145); Total Bilirubin 0.3 mg/dL (0.2-1.3); Total Protein 7.4 g/dL (6.3-8.2)
== END 2021-07-09 17:29 | disposition home or self-care (01) ==
LOC: EC 13:58
DX: G43.909 Migraine, unspecified, not intractable, without status migrainosus (principal); J45.909 Unspecified asthma, uncomplicated; F32.A Depression, unspecified; F41.9 Anxiety disorder, unspecified; F20.9 Schizophrenia, unspecified; F17.290 Nicotine dependence, other tobacco product, uncomplicated; F12.90 Cannabis use, unspecified, uncomplicated; Z79.899 Other long term (current) drug therapy
CPT/HCPCS: 36415; 93005; 80053; 85025; 99284; 96374; 96375 ×3; 96361; J1200; J1100; J2765; J1885

== ENCOUNTER 2021-08-10 19:23 | Emergency (ER) | payer OTHER ==
[2021-08-10 19:44] VITALS: BP 103/61; PULSE 82; RESP 20; TEMP 96.9
[2021-08-10 20:33] LABS: Appearance,Urine Clear (Clear); Bilirubin,Urine Negative (Negative); Blood,Urine Moderate (Negative); Color,Urine Yellow; Glucose,Urine (UA) Negative (Negative); Ketones,Urine Negative (Negative); Leukocyte Esterase,Urine Negative (Negative); Mucus,Urine Rare /hpf; Nitrite,Urine Negative (Negative); Protein,Urine Negative (Negative); Specific Gravity,Urine 1.013 (1.001-1.035); Squamous Epithelial Cell,Urine 1 /hpf (0-4); WBC,Urine 1 /hpf (0-5)
--- NOTE | 2021-08-10 22:17 | US ---
EXAMINATION TYPE: Transabdominal DATE OF EXAM: 08/10/2021 10:01 PM COMPARISON: NONE CLINICAL HISTORY: bleeding, . Pt states cramping and heavy vaginal bleedin EXAM PERFORMED: Transabdominal (TA) EXAM MEASUREMENTS: GESTATIONAL AGE / DATING Physician Established: Not yet established Dates by LMP: (12 weeks/3 days) EDC: 02/19/2022 Dates by First Scan: No prior Dates by Current Scan for: (7 weeks/2 days) EDC: 03/27/2022 MATERNAL ANATOMY Uterus: 9.6 x 5.2 x 6.6 cm Right Ovary: 2.6 x 2.1 x 2.3 cm Left Ovary: 3.1 x 1.9 x 2.5 cm Post CDS / Adnexa: wnl Presence of free fluid: No Presence of corpus luteal cyst: Right ovary= 1.8 x 1.4 x 1.8 cm Presence of subchorionic bleed: Yes, right of gestational sac= 5.5 x 2.5 x 3.8 cm GESTATION / SURVEY CRL: 1.2 cm (7 weeks/2 days) MSD: wnl Yolk Sac (normal less than 6mm): 3mm Heart Rate: 147 bpm Rhythm: Normal IUP: Viable IUP Single, viable IUP/ Subchorionic bleed IMPRESSION: The ultrasound gestational ages 7 weeks and 2 days. There is 3.5 x 2 cm subchorionic hemorrhage on th e right side of the gestational sac..
--- NOTE | 2021-08-10 22:20 | ED ---
General Adult HPI - General Chief complaint: Vaginal Bleeding Stated complaint: 8 Weeks Preg. Vaginal Bleeding, Abdominal Pain Time Seen by Provider: 08/10/21 22:02 Source: patient, RN notes reviewed Mode of arrival: ambulatory Limitations: no limitations - History of Present Illness Initial comments: 20-year-old female, , presents to the emergency department accompanied by her sister, for evaluation of vaginal bleeding and lower abdominal cramping. Patient states she is approximately 8 weeks , LMP 422, and has not yet seen an HYDRAULIC JACK ADJUSTER. States her bleeding began spontaneously this evening, though has significantly decreased since onset. Reports cramping discomfort has worsened. Denies fever, chills, dizziness, chest pain, difficulty breathing, nausea, vomiting, diarrhea, dysuria, trauma, or injury. - Related Data Home Medications Medication Instructions Recorded Confirmed QUEtiapine FUMARATE [SEROquel XR] 300 mg PO HS 06/18/21 08/10/21 Hgy-Niqf-Eyxqf Acid 1 cap PO DAILY 08/10/21 08/10/21 [-U Capsule (formulary)] Previous Rx's Medication Instructions Recorded Vit No.179/Iron/Folic 1 each PO DAILY #30 tab 08/10/21 [ Tablet] Allergies Allergy/AdvReac Type Severity Reaction Status Date / Time Penicillins Allergy Rash/Hives Verified 08/10/21 23:01 Review of Systems ROS Statement: Those systems with pertinent positive or pertinent negative responses have been documented in the HPI. ROS Other: All systems not noted in ROS Statement are negative. Past Medical History Past Medical History: Asthma History of Any Multi-Drug Resistant Organisms: None Reported Past Surgical History: No Surgical Hx Reported Past Anesthesia/Blood Transfusion Reactions: No Reported Reaction Past Psychological History: Anxiety, Depression, Schizophrenia Smoking Status: Vaper Past Alcohol Use History: None Reported Past Drug Use History: Marijuana General Exam Limitations: no limitations (Well-developed, well-nourished female in no acute distress. Initial temperature 96.9, pulse 82, respirations 20, blood pressure 103/61, pulse ox 99% on room air.) General appearance: alert, in no apparent distress ENT exam: Present: normal oropharynx, mucous membranes moist Respiratory exam: Present: normal lung sounds bilaterally. Absent: respiratory distress, wheezes, rales, rhonchi, stridor Cardiovascular Exam: Present: regular rate, normal rhythm, normal heart sounds. Absent: systolic murmur, diastolic murmur, rubs, gallop, clicks GI/Abdominal exam: Present: soft, normal bowel sounds. Absent: distended, tenderness, guarding, rebound, rigid Speculum exam: Present: vaginal bleeding (Small amount of dark red thin vaginal bleeding noted. Cervical os is closed.) Back exam: Absent: CVA tenderness (R), CVA tenderness (L) Neurological exam: Present: alert, oriented X3, CN II-XII intact Psychiatric exam: Present: normal affect, normal mood Skin exam: Present: warm, dry, intact, normal color. Absent: rash Course Vital Signs 08/10/21 19:42 Temperature 96.9 F L Pulse Rate 82 Respiratory 20 Rate Blood Pressure 103/61 O2 Sat by Pulse 99 Oximetry - Reevaluation(s) Reevaluation #1: 08/10/21 23:12 Lengthy amount of time with patient discussing results and appropriate follow-up care. She is instructed to avoid sexual intercourse and vigorous or strenuous activity. She has a 1 week supply of vitamins left therefore will be prescribed a 30-day supply. Patient's sister is also present at bedside and provides reassurance about coordinating follow up care. Medical Decision Making - Medical Decision Making This is a 20-year-old female, , who presents to the emergency department for evaluation of vaginal bleeding in early . LMP 4822. Upon exam, patient is well-appearing and in no acute distress. Vital signs are stable. Abdomen is soft and nontender. She does have a small amount of thin dark red vaginal bleeding. Cervical os is closed. Ultrasound confirms presence of a single IUP. heart rate 147. Laboratory studies were reviewed and are unremarkable. She has A positive blood type. She is instructed to refrain from vigorous activity and sexual intercourse. Implored to follow up with HYDRAULIC JACK ADJUSTER to establish care. She will be prescribed a vitamin. Return parameters discussed in detail. Patient verbalizes understanding and agrees with this plan. Attending: Humphrey. - Lab Data Result diagrams: 08/10/21 22:37 08/10/21 22:37 Lab Results 08/10/21 08/10/21 08/10/21 Range/Units 19:44 19:44 22:37 WBC 6.2 (4.0-11.0) k/uL RBC 3.75 L (3.80-5.40) m/uL Hgb 11.6 (11.4-16.0) gm/dL Hct 33.8 L (34.0-46.0) % MCV 90.1 (80.0-100.0) fL MCH 30.8 (25.0-35.0) pg MCHC 34.2 (31.0-37.0) g/dL RDW 15.0 (11.5-15.5) % Plt Count 202 (150-450) k/uL MPV 8.6 Neutrophils % 58 % Lymphocytes % 33 % Monocytes % 7 % Eosinophils % 1 % Basophils % 0 % Neutrophils # 3.6 (1.3-7.7) k/uL Lymphocytes # 2.0 (1.0-4.8) k/uL Monocytes # 0.4 (0-1.0) k/uL Eosinophils # 0.1 (0-0.7) k/uL Basophils # 0.0 (0-0.2) k/uL Sodium (137-145) mmol/L Potassium (3.5-5.1) mmol/L Chloride (98-107) mmol/L Carbon Dioxide (22-30) mmol/L Anion Gap mmol/L BUN (7-17) mg/dL Creatinine (0.52-1.04) mg/dL Est GFR (CKD-EPI)AfAm (>60 ml/min/1.73 sqM) Est GFR (CKD-EPI)NonAf (>60 ml/min/1.73 sqM) Glucose (74-99) mg/dL Calcium (8.4-10.2) mg/dL Total Bilirubin (0.2-1.3) mg/dL AST (14-36) U/L ALT (4-34) U/L Alkaline Phosphatase (38-126) U/L Total Protein (6.3-8.2) g/dL Albumin (3.5-5.0) g/dL HCG, Quant mIU/mL Urine Color Yellow Urine Appearance Clear (Clear) Urine pH 8.0 (5.0-8.0) Ur Specific [place] 1.013 (1.001-1.035) Urine Protein Negative (Negative) Urine Glucose (UA) Negative (Negative) Urine Ketones Negative (Negative) Urine Blood Moderate H (Negative) Urine Nitrite Negative (Negative) Urine Bilirubin Negative (Negative) Urine Urobilinogen 8.0 (<2.0) mg/dL Ur Leukocyte Esterase Negative (Negative) Urine WBC 1 (0-5) /hpf Ur Squamous Epith Cells 1 (0-4) /hpf Urine Mucus Rare H (None) /hpf Urine HCG, Qual Detected (Not Detectd) Blood Type Blood Type Recheck Bld Type Recheck Status 08/10/21 08/10/21 Range/Units 22:37 22:37 WBC (4.0-11.0) k/uL RBC (3.80-5.40) m/uL Hgb (11.4-16.0) gm/dL Hct (34.0-46.0) % MCV (80.0-100.0) fL MCH (25.0-35.0) pg MCHC (31.0-37.0) g/dL RDW (11.5-15.5) % Plt Count (150-450) k/uL MPV Neutrophils % % Lymphocytes % % Monocytes % % Eosinophils % % Basophils % % Neutrophils # (1.3-7.7) k/uL Lymphocytes # (1.0-4.8) k/uL Monocytes # (0-1.0) k/uL Eosinophils # (0-0.7) k/uL Basophils # (0-0.2) k/uL Sodium 134 L (137-145) mmol/L Potassium 3.7 (3.5-5.1) mmol/L Chloride 104 (98-107) mmol/L Carbon Dioxide 22 (22-30) mmol/L Anion Gap 8 mmol/L BUN 4 L (7-17) mg/dL Creatinine 0.55 (0.52-1.04) mg/dL Est GFR (CKD-EPI)AfAm >90 (>60 ml/min/1.73 sqM) Est GFR (CKD-EPI)NonAf >90 (>60 ml/min/1.73 sqM) Glucose 87 (74-99) mg/dL Calcium 8.9 (8.4-10.2) mg/dL Total Bilirubin 0.3 (0.2-1.3) mg/dL AST 20 (14-36) U/L ALT 9 (4-34) U/L Alkaline Phosphatase 63 (38-126) U/L Total Protein 6.9 (6.3-8.2) g/dL Albumin 4.3 (3.5-5.0) g/dL HCG, Quant 99959.3 mIU/mL Urine Color Urine Appearance (Clear) Urine pH (5.0-8.0) Ur Specific [place] (1.001-1.035) Urine Protein (Negative) Urine Glucose (UA) (Negative) Urine Ketones (Negative) Urine Blood (Negative) Urine Nitrite (Negative) Urine Bilirubin (Negative) Urine Urobilinogen (<2.0) mg/dL Ur Leukocyte Esterase (Negative) Urine WBC (0-5) /hpf Ur Squamous Epith Cells (0-4) /hpf Urine Mucus (None) /hpf Urine HCG, Qual (Not Detectd) Blood Type O Positive Blood Type Recheck No Previous Record Bld Type Recheck Status [facility] ONLY - Radiology Data Radiology results: report reviewed, image reviewed Transabdominal ultrasound was obtained. Report was reviewed in its entirety. Single, viable IUP present. Impression per Dr. Amaral is the ultrasound gestational age is 7 weeks and 2 days. There is a 3.5 x 2 cm subchorionic hemorrhage on the right side of the gestational sac. Disposition Clinical Impression: Threatened in first trimester Disposition: HOME SELF-CARE Condition: Stable Instructions (If sedation given, give patient instructions): Threatened Miscarriage (ED) Additional Instructions: Call OB-Class A Truck Driver in the morning to establish care and schedule follow up appointment. Refrain from sexual intercourse and vigorous activity. May take Tylenol if needed for pain. Increase intake of fluids. Return to the emergency department if you develop a fever, increased pain, or are bleeding more than one pad per hour. Prescriptions: Vit No.179/Iron/Folic [ Tablet] 1 each PO DAILY #30 tab Is patient prescribed a controlled substance at d/c from ED?: No Referrals: Patti Prakash MD [Primary Care Provider] - 1-2 days Brianna Knox MD [STAFF PHYSICIAN] - 1-2 days Time of Disposition: 23:57
[2021-08-10 22:54] LABS: Basophils % (A) 0 %; Eosinophils # (A) 0.1 k/uL (0-0.7); Eosinophils % (A) 1 %; HCT 33.8 % (34.0-46.0); HGB 11.6 gm/dL (11.4-16.0); Lymphocytes % (A) 33 %; MCH 30.8 pg (25.0-35.0); MCHC 34.2 g/dL (31.0-37.0); MCV 90.1 fL (80.0-100.0); Mean Platelet Volume 8.6; Monocytes # (A) 0.4 k/uL (0-1.0); Monocytes % (A) 7 %; Neutrophils # (A) 3.6 k/uL (1.3-7.7); Neutrophils % (A) 58 %; Platelet Count 202 k/uL (150-450); RBC 3.75 m/uL (3.80-5.40); WBC 6.2 k/uL (4.0-11.0)
[2021-08-10 23:11] LABS: ALT 9 U/L (4-34); AST 20 U/L (14-36); African American GFR (CKD) >90 (>60 ml/min/1.73 sqM); Albumin 4.3 g/dL (3.5-5.0); Alkaline Phosphatase 63 U/L (38-126); Anion Gap 8 mmol/L; Blood Urea Nitrogen 4 mg/dL (7-17); Calcium 8.9 mg/dL (8.4-10.2); Carbon Dioxide 22 mmol/L (22-30); Chloride 104 mmol/L (98-107); Glucose 87 mg/dL (74-99); Non-African American GFR(CKD) >90 (>60 ml/min/1.73 sqM); Potassium 3.7 mmol/L (3.5-5.1); Sodium 134 mmol/L (137-145); Total Bilirubin 0.3 mg/dL (0.2-1.3); Total Protein 6.9 g/dL (6.3-8.2)
[2021-08-10] MEDS ORDERED: ONDANSETRON 4 MG/2 ML VIAL IVP STA (23:39)
[2021-08-10 23:53] LABS: HCG,Quantitative Serum 55306.3 mIU/mL
== END 2021-08-11 00:14 | disposition home or self-care (01) ==
LOC: EC 19:23
DX: O20.0 Threatened abortion (principal); O99.341 Other mental disorders complicating pregnancy, first trimester; F32.A Depression, unspecified; F41.9 Anxiety disorder, unspecified; F20.9 Schizophrenia, unspecified; O99.331 Smoking (tobacco) complicating pregnancy, first trimester; F17.290 Nicotine dependence, other tobacco product, uncomplicated; O99.321 Drug use complicating pregnancy, first trimester; F12.90 Cannabis use, unspecified, uncomplicated; Z3A.01 Less than 8 weeks gestation of pregnancy
CPT/HCPCS: 36415; 86900; 86901; 80053; 85025; 81001; 81025; 84702; 76801; 99284; 96374; J2405

== ENCOUNTER 2021-08-13 20:18 | Emergency (ER) | payer OTHER ==
[2021-08-13 21:17] VITALS: BP 118/65; PULSE 71; RESP 16; TEMP 98.1
--- NOTE | 2021-08-13 22:00 | US ---
EXAMINATION TYPE: Transabdominal DATE OF EXAM: 08/13/2021 9:45 PM COMPARISON: 24/05/2021 CLINICAL HISTORY: vaginal bleeding. US here 3 days ago with bleeding, bleeding stopped, then started again today, RLQ pain, A1 EXAM PERFORMED: OBTA EXAM MEASUREMENTS: GESTATIONAL AGE / DATING Physician Established: Not yet established Dates by LMP: LMP unknown Dates by First Scan: (7 weeks/5 days) EDC: 03/28/2022 Dates by Current Scan for: (7 weeks/4 days) EDC: 03/27/2022 MATERNAL ANATOMY Uterus: 9.8 x 7.0 x 5.6cm Right Ovary: 2.7 x 2.3 x 2.0cm Left Ovary: 2.1 x 1.6 x 2.3cm Post CDS / Adnexa: wnl Presence of free fluid: no Presence of corpus luteal cyst: yes - right ovary = 2.2cm Presence of subchorionic bleed: yes - 4.8 x 4.3 x 2.4cm, previous measurement 5.5 x 2.5 x 3.8cm GESTATION / SURVEY CRL: 1.3cm (7 weeks/4 days) MSD: wnl Yolk Sac (normal less than 6mm): 0.2cm Heart Rate: 168 bpm Rhythm: Normal IUP: Viable IUP Beta HcG (if available): not available IMPRESSION: Single viable intrauterine . Persistent but slightly smaller Subchorionic hemorrhage as note d. Corpus luteal cyst right ovary.
== END 2021-08-13 22:30 | disposition left against medical advice (07) ==
LOC: EC 20:18
DX: Z53.21 Procedure and treatment not carried out due to patient leaving prior to being seen by health care provider (principal)
CPT/HCPCS: 76801; 99499

== ENCOUNTER 2021-08-19 20:08 | Emergency (ER) | payer OTHER ==
[2021-08-19 20:14] VITALS: BP 124/81; PULSE 109; RESP 22; TEMP 98
--- NOTE | 2021-08-19 21:58 | ED ---
Female Urogenital HPI - General Chief complaint: Vaginal Bleeding Stated complaint: 10 Weeks, Possible Miscarriage Time Seen by Provider: 08/19/21 20:34 Source: patient, family Mode of arrival: ambulatory Limitations: no limitations - History of Present Illness Initial comments: Patient is a 20-year-old -[place] female presents the emergency room with complaints of pelvic cramping and bloody mucous-like discharge. She is concerned that she is miscarrying again. She is a G2 para 0 and miscarried her last . She is reportedly 10 weeks and was here in the emergency room on 08/14/2019 where she had serum beta levels drawn in the 55,000 range and an OB ultrasound that showed a 7 week 4 day gestation intrauterine with a subchorionic: Small hemorrhage. She reports that she has been resting as advised and she was last in the emergency room and taking her vitamin as advised. She she does not recall having AB RhO typing and therre is no record of the testing on file at this facility. She is a past medical history significant for asthma. She denies any other complaints or concerns at this time. - Related Data Home Medications Medication Instructions Recorded Confirmed QUEtiapine FUMARATE [SEROquel XR] 300 mg PO HS 06/18/21 08/19/21 Jys-Tims-Khtyt Acid 1 cap PO DAILY 08/10/21 08/19/21 [-U Capsule (formulary)] Allergies Allergy/AdvReac Type Severity Reaction Status Date / Time Penicillins Allergy Rash/Hives Verified 08/19/21 22:04 Review of Systems ROS Statement: Those systems with pertinent positive or pertinent negative responses have been documented in the HPI. ROS Other: All systems not noted in ROS Statement are negative. Past Medical History Past Medical History: Asthma History of Any Multi-Drug Resistant Organisms: None Reported Past Surgical History: No Surgical Hx Reported Past Anesthesia/Blood Transfusion Reactions: No Reported Reaction Past Psychological History: Anxiety, Depression, Schizophrenia Smoking Status: Vaper Past Alcohol Use History: None Reported Past Drug Use History: Marijuana General Exam Limitations: no limitations General appearance: alert, in no apparent distress Head exam: Present: atraumatic, normocephalic, normal inspection Eye exam: Present: normal appearance, PERRL, EOMI. Absent: scleral icterus, conjunctival injection, periorbital swelling ENT exam: Present: normal exam, mucous membranes moist Respiratory exam: Absent: respiratory distress, accessory muscle use GI/Abdominal exam: Present: soft. Absent: distended, tenderness Extremities exam: Absent: pedal edema, joint swelling Back exam: Present: normal inspection Neurological exam: Present: alert, oriented X3, CN II-XII intact Psychiatric exam: Present: normal affect, normal mood Skin exam: Present: warm, dry, intact, normal color. Absent: rash Course Vital Signs 08/19/21 20:10 Temperature 98 F Pulse Rate 109 H Respiratory 22 Rate Blood Pressure 124/81 O2 Sat by Pulse 99 Oximetry Medical Decision Making - Medical Decision Making High probability for aborting . Will check serum beta levels along with ultrasound and AB Rh testing. Ultrasound of the uterus shows a intrauterine at gestational age of 8 weeks 4 days with satisfactory growth compared to exam one week ago unfortunately also shows increase in subchorionic hemorrhage. Findings discussed with patient. At this time advised bedrest until told otherwise by OB. Patient already has an appointment scheduled with HIGH SCHOOL TUTOR tomorrow. Advised keep upcoming appointment. Advised may use Tylenol as needed for pain. Avoid any other qhqg-wby-ehomcas medications and herbal supplements. Case discussed with Dr. Le. - Lab Data Lab Results 08/19/21 08/19/21 Range/Units 21:35 21:43 HCG, Qual Detected Blood Type O Positive Blood Type Recheck O Pos Bld Type Recheck Status No - Radiology Data Radiology results: report reviewed, image reviewed Ultrasound shows gestational age of 8 weeks 4 days with satisfactory growth compared to last exam. There is an increase in her subcoracoid hemorrhage compared to old exam. Disposition Clinical Impression: Subchorionic hematoma in first trimester Disposition: HOME SELF-CARE Condition: Stable Instructions (If sedation given, give patient instructions): Subchorionic Hemorrhage (ED) Additional Instructions: Please continue daily vitamin. Maintain bed rest at this time until after appointment with HIGH SCHOOL TUTOR as scheduled tomorrow. Keep upcoming HIGH SCHOOL TUTOR appointment. Avoid caffeinated products and the use of medications and herbal supplements including THC. May use Tylenol as needed for pain. Please return to the Emergency Department if symptoms worsen or any other concerns. Is patient prescribed a controlled substance at d/c from ED?: No Referrals: Patti Prakash MD [Primary Care Provider] - 1-2 days Time of Disposition: 00:14
--- NOTE | 2021-08-19 23:28 | US ---
EXAMINATION TYPE: Transabdominal DATE OF EXAM: 08/19/2021 11:11 PM COMPARISON: 08/13/2021 CLINICAL HISTORY: threatened . vaginal bleeding today with cramping EXAM PERFORMED: Transabdominal (TA) EXAM MEASUREMENTS: GESTATIONAL AGE / DATING Physician Established: Not yet established Dates by LMP: LMP unknown Dates by First Scan: (8 weeks/3 days) EDC: 03/28/22 Dates by Current Scan for: (8 weeks/4 days) EDC: 03/27/22 MATERNAL ANATOMY Uterus: 9.2 x 5.5 x 5.9cm Right Ovary: 2.6 x 2.2 x 2.0cm Left Ovary: 2.4 x 2.0 x 1.2cm Post CDS / Adnexa: wnl Presence of free fluid: no Presence of corpus luteal cyst: yes, right ovary = 1.9 x 1.9 x 2.1cm Presence of subchorionic bleed: yes = 4.2 x 6.3 x 3.3cm, previous measurement = 4.8 x 4.3 x 2.4cm GESTATION / SURVEY CRL: 1.9cm (8 weeks/4 days) Yolk Sac (normal less than 6mm): 0.3cm Heart Rate: 170 bpm Rhythm: Normal IUP: Viable IUP Date of LMP: unknown IMPRESSION: The ultrasound gestational age is 8 weeks and 4 days. There is increase in the subchorionic hemorrhag e compared to exam one week ago. There is satisfactory growth compared to last exam. There is l arge subchorionic hemorrhage.
== END 2021-08-20 01:33 | disposition home or self-care (01) ==
LOC: EC 20:08
DX: O20.8 Other hemorrhage in early pregnancy (principal); O99.341 Other mental disorders complicating pregnancy, first trimester; F32.A Depression, unspecified; F41.9 Anxiety disorder, unspecified; F20.9 Schizophrenia, unspecified; O99.331 Smoking (tobacco) complicating pregnancy, first trimester; F17.290 Nicotine dependence, other tobacco product, uncomplicated; O99.321 Drug use complicating pregnancy, first trimester; F12.90 Cannabis use, unspecified, uncomplicated; Z3A.08 8 weeks gestation of pregnancy; Z79.899 Other long term (current) drug therapy
CPT/HCPCS: 36415; 76801; 84703; 86900; 86901; 99284

== ENCOUNTER 2021-08-21 21:26 | Emergency (ER) | payer OTHER ==
[2021-08-21 21:35] VITALS: RESP 18; TEMP 98.9
[2021-08-21] MEDS ORDERED: SODIUM CHLORIDE 0.9% 500 ML 500 ML IV STA (23:43)
[2021-08-21] MEDS ORDERED: ACETAMINOPHEN TAB 325 MG TAB PO STA (23:50)
--- NOTE | 2021-08-21 23:54 | ED ---
General Adult HPI - General Chief complaint: Vaginal Bleeding Stated complaint: Vaginal Bleeding Time Seen by Provider: 08/21/21 23:40 Source: patient, police, RN notes reviewed, old records reviewed Mode of arrival: ambulatory Limitations: no limitations - History of Present Illness Initial comments: Well-appearing 20-year-old female brought in in police custody with complaints of vaginal bleeding and cramping that started yesterday. Patient states that she is approximately 10 weeks . Has been seen multiple times for bleeding with this . Patient's states that she started with spotting yesterday but progressed to cramping and heavy vaginal bleeding today. This is her second , first was a miscarriage. -: days(s) (2) Location: abdomen Quality: other (cramping) Associated Symptoms: other (vaginal bleeding) - Related Data Home Medications Medication Instructions Recorded Confirmed QUEtiapine FUMARATE [SEROquel XR] 300 mg PO HS 06/18/21 08/19/21 Eoj-Obra-Myunl Acid 1 cap PO DAILY 08/10/21 08/19/21 [-U Capsule (formulary)] Allergies Allergy/AdvReac Type Severity Reaction Status Date / Time Penicillins Allergy Rash/Hives Verified 08/21/21 21:35 Patient : Yes Review of Systems ROS Statement: Those systems with pertinent positive or pertinent negative responses have been documented in the HPI. ROS Other: All systems not noted in ROS Statement are negative. Past Medical History Past Medical History: Asthma History of Any Multi-Drug Resistant Organisms: None Reported Past Surgical History: No Surgical Hx Reported Past Anesthesia/Blood Transfusion Reactions: No Reported Reaction Past Psychological History: Anxiety, Bipolar, Depression, Schizophrenia Smoking Status: Vaper Past Alcohol Use History: None Reported Past Drug Use History: Marijuana General Exam Limitations: no limitations General appearance: alert, in no apparent distress Head exam: Present: atraumatic Eye exam: Absent: scleral icterus, conjunctival injection, periorbital swelling Neck exam: Present: full ROM. Absent: meningismus Respiratory exam: Present: normal lung sounds bilaterally. Absent: respiratory distress, accessory muscle use Cardiovascular Exam: Present: regular rate, normal rhythm GI/Abdominal exam: Present: soft. Absent: distended, tenderness, rigid Extremities exam: Present: normal capillary refill Neurological exam: Present: alert, oriented X3 Psychiatric exam: Present: normal affect, normal mood Skin exam: Present: warm, dry, normal color. Absent: cyanosis, diaphoretic, pe techiae, pallor Course Vital Signs 08/21/21 21:33 Temperature 98.9 F Pulse Rate 76 Respiratory 18 Rate Blood Pressure 116/76 O2 Sat by Pulse 99 Oximetry Medical Decision Making - Medical Decision Making Patient presents with intermittent vaginal bleeding in . Has been seen in the emergency room August 10, August 13 and August 19 for the same. She was scheduled to see Dr. Knox yesterday but did not go to that appointment. ultrasound shows normal arterial and venous inflow and outflow. Viable IUP 8 weeks and 5 days. Subchorionic complex fluid on the right side consistent with subchorionic hemorrhage not significantly changed compared to August 19 ultrasound. Hemoglobin and hematocrit are stable. Patient's blood type is O+. Serum hCG on August 10 was 55,306, today Beta Quant 124,995 She was directed to take Tylenol only for pain. Bed rest and no sexual interc ourse until seen by NIGHT AUDITOR. Patient is agreeable to this plan of care. Officer at bedside also aware of restrictions and recommendation to follow up with NIGHT AUDITOR. They will return to the emergency room with any new or concerning symptoms including increased pain, dizziness, or fevers. Vital signs are stable Case discussed with Dr. Yin - Lab Data Result diagrams: 08/22/21 00:12 08/22/21 00:12 Lab Results 08/22/21 08/22/21 08/22/21 Range/Units 00:12 00:12 02:01 WBC 6.3 (4.0-11.0) k/uL RBC 3.97 (3.80-5.40) m/uL Hgb 12.3 (11.4-16.0) gm/dL Hct 36.5 (34.0-46.0) % MCV 91.8 (80.0-100.0) fL MCH 31.0 (25.0-35.0) pg MCHC 33.8 (31.0-37.0) g/dL RDW 15.0 (11.5-15.5) % Plt Count 219 (150-450) k/uL MPV 8.2 Neutrophils % 71 % Lymphocytes % 21 % Monocytes % 7 % Eosinophils % 1 % Basophils % 0 % Neutrophils # 4.5 (1.3-7.7) k/uL Lymphocytes # 1.3 (1.0-4.8) k/uL Monocytes # 0.4 (0-1.0) k/uL Eosinophils # 0.0 (0-0.7) k/uL Basophils # 0.0 (0-0.2) k/uL Sodium 133 L (137-145) mmol/L Potassium 4.5 (3.5-5.1) mmol/L Chloride 98 (98-107) mmol/L Carbon Dioxide 21 L (22-30) mmol/L Anion Gap 14 mmol/L BUN 6 L (7-17) mg/dL Creatinine 0.41 L (0.52-1.04) mg/dL Est GFR (CKD-EPI)AfAm >90 (>60 ml/min/1.73 sqM) Est GFR (CKD-EPI)NonAf >90 (>60 ml/min/1.73 sqM) Glucose 77 (74-99) mg/dL Calcium 10.0 (8.4-10.2) mg/dL Total Bilirubin 1.0 (0.2-1.3) mg/dL AST 20 (14-36) U/L ALT 10 (4-34) U/L Alkaline Phosphatase 72 (38-126) U/L Total Protein 7.9 (6.3-8.2) g/dL Albumin 5.0 (3.5-5.0) g/dL HCG, Quant 139922.0 mIU/mL Urine Color Yellow Urine Appearance Clear (Clear) Urine pH 6.0 (5.0-8.0) Ur Specific [place] 1.033 (1.001-1.035) Urine Protein 2+ H (Negative) Urine Glucose (UA) Negative (Negative) Urine Ketones 4+ H (Negative) Urine Blood Large H (Negative) Urine Nitrite Negative (Negative) Urine Bilirubin Negative (Negative) Urine Urobilinogen 2.0 (<2.0) mg/dL Ur Leukocyte Esterase Small H (Negative) Urine RBC >182 H (0-5) /hpf Urine WBC 13 H (0-5) /hpf Ur Squamous Epith Cells 2 (0-4) /hpf Hyaline Casts 2 (0-2) /lpf Urine Mucus Many H (None) /hpf Disposition Clinical Impression: Vaginal bleeding, Threatened , Subchorionic hemorrhage in first trimester Disposition: HOME SELF-CARE Condition: Good Instructions (If sedation given, give patient instructions): Threatened Miscarriage (ED) Additional Instructions: There is no significant change in your ultrasound. On ultrasound there is an intrauterine with a gestational age of 8 weeks and 5 days. Beta hCG today is 124,995, elevated from 55,306 on August 10 which is a good sign. Take Tylenol only for pain. Bed rest, no sexual intercourse. Nothing in the vagina until seen by NIGHT AUDITOR. Return to the emergency room with any new or concerning symptoms including dizziness, fevers, or increased pain. Is patient prescribed a controlled substance at d/c from ED?: No Referrals: Patti Prakash MD [Primary Care Provider] - 1-2 days Time of Disposition: 02:39
[2021-08-22 00:18] LABS: Basophils % (A) 0 %; Eosinophils % (A) 1 %; HCT 36.5 % (34.0-46.0); HGB 12.3 gm/dL (11.4-16.0); Lymphocytes # (A) 1.3 k/uL (1.0-4.8); Lymphocytes % (A) 21 %; MCHC 33.8 g/dL (31.0-37.0); MCV 91.8 fL (80.0-100.0); Mean Platelet Volume 8.2; Monocytes # (A) 0.4 k/uL (0-1.0); Monocytes % (A) 7 %; Neutrophils # (A) 4.5 k/uL (1.3-7.7); Neutrophils % (A) 71 %; Platelet Count 219 k/uL (150-450); RBC 3.97 m/uL (3.80-5.40); WBC 6.3 k/uL (4.0-11.0)
[2021-08-22 00:29] LABS: ALT 10 U/L (4-34); AST 20 U/L (14-36); African American GFR (CKD) >90 (>60 ml/min/1.73 sqM); Alkaline Phosphatase 72 U/L (38-126); Anion Gap 14 mmol/L; Blood Urea Nitrogen 6 mg/dL (7-17); Carbon Dioxide 21 mmol/L (22-30); Chloride 98 mmol/L (98-107); Glucose 77 mg/dL (74-99); Non-African American GFR(CKD) >90 (>60 ml/min/1.73 sqM); Potassium 4.5 mmol/L (3.5-5.1); Sodium 133 mmol/L (137-145); Total Protein 7.9 g/dL (6.3-8.2)
--- NOTE | 2021-08-22 01:05 | US ---
EXAMINATION TYPE: Transabdominal DATE OF EXAM: 08/22/2021 12:42 AM COMPARISON: US 7-4, 7-7, and 08-19-21 CLINICAL HISTORY: rlq pain r/o ovarian torsion. EXAM PERFORMED: Transabdominal (TA) EXAM MEASUREMENTS: GESTATIONAL AGE / DATING Physician Established: Not yet established Dates by LMP: LMP unknown Dates by First Scan: (9 weeks/0 days) EDC: 03-27-22 Dates by Current Scan for: (8 weeks/5 days) EDC: 03-29-22 MATERNAL ANATOMY Uterus: 10.2 x 7.0 x 7.4cm Right Ovary: 3.0 x 1.9 x 2.5cm Good venous and arterial blood flow seen in right ovary. Left Ovary: 3.0 x 2.0 x 2.1cm Post CDS / Adnexa: wnl Presence of subchorionic bleed: 5.6 x 3.5 x 3.1cm GESTATION / SURVEY CRL: 2.1cm ( 8 weeks/5 days) Yolk Sac (normal less than 6mm): 4mm Heart Rate: 163 bpm Rhythm: Normal IUP: Viable IUP IMPRESSION: The color-flow Doppler images with spectral analysis show no evidence of ovarian torsion on the right side. There is normal arterial and venous inflow and outflow. The ultrasound gestational age is 8 weeks and 5 days. There is subchorionic complex fluid on the righ t side consistent with subchorionic hemorrhage and not significantly changed in size compared to 08/19.
[2021-08-22 02:20] LABS: Appearance,Urine Clear (Clear); Bilirubin,Urine Negative (Negative); Blood,Urine Large (Negative); Color,Urine Yellow; Glucose,Urine (UA) Negative (Negative); Hyaline Casts,Urine 2 /lpf (0-2); Ketones,Urine 4+ (Negative); Leukocyte Esterase,Urine Small (Negative); Mucus,Urine Many /hpf; Nitrite,Urine Negative (Negative); Protein,Urine 2+ (Negative); RBC,Urine >182 /hpf (0-5); Specific Gravity,Urine 1.033 (1.001-1.035); Squamous Epithelial Cell,Urine 2 /hpf (0-4); WBC,Urine 13 /hpf (0-5)
[2021-08-22 03:07] VITALS: BP 123/80; PULSE 80
== END 2021-08-22 03:07 | disposition home or self-care (01) ==
LOC: EC 21:26
DX: O26.851 Spotting complicating pregnancy, first trimester (principal); O20.0 Threatened abortion; J45.909 Unspecified asthma, uncomplicated; F17.209 Nicotine dependence, unspecified, with unspecified nicotine-induced disorders; Z88.0 Allergy status to penicillin; Z3A.10 10 weeks gestation of pregnancy
CPT/HCPCS: 36415; 76801; 80053; 81001; 84702; 85025; 87086; 93976; 99284

== ENCOUNTER 2021-09-02 14:17 | Emergency (ER) | payer OTHER ==
[2021-09-02] MEDS ORDERED: SODIUM CHLORIDE 0.9% 1,000 ML IV ONE (15:47)
[2021-09-02 16:15] LABS: Basophils % (A) 0 %; Eosinophils % (A) 1 %; HCT 29.2 % (34.0-46.0); Lymphocytes # (A) 1.4 k/uL (1.0-4.8); Lymphocytes % (A) 26 %; MCH 30.8 pg (25.0-35.0); MCHC 33.5 g/dL (31.0-37.0); MCV 91.8 fL (80.0-100.0); Mean Platelet Volume 8.6; Monocytes # (A) 0.3 k/uL (0-1.0); Monocytes % (A) 6 %; Neutrophils # (A) 3.7 k/uL (1.3-7.7); Neutrophils % (A) 66 %; Platelet Count 212 k/uL (150-450); RBC 3.18 m/uL (3.80-5.40); RDW 15.3 % (11.5-15.5); WBC 5.6 k/uL (4.0-11.0)
[2021-09-02 16:20] LABS: ALT 11 U/L (4-34); AST 18 U/L (14-36); African American GFR (CKD) >90 (>60 ml/min/1.73 sqM); Alkaline Phosphatase 51 U/L (38-126); Anion Gap 8 mmol/L; Blood Urea Nitrogen 3 mg/dL (7-17); Carbon Dioxide 22 mmol/L (22-30); Chloride 106 mmol/L (98-107); Glucose 91 mg/dL (74-99); Non-African American GFR(CKD) >90 (>60 ml/min/1.73 sqM); Potassium 3.6 mmol/L (3.5-5.1); Sodium 136 mmol/L (137-145); Total Bilirubin 0.2 mg/dL (0.2-1.3); Total Protein 6.5 g/dL (6.3-8.2)
[2021-09-02 16:34] LABS: Appearance,Urine Cloudy (Clear); Bacteria,Urine Rare /hpf; Bilirubin,Urine Negative (Negative); Blood,Urine Large (Negative); Calcium Oxalate Crystals,Urine Rare /hpf; Color,Urine Yellow; Glucose,Urine (UA) Negative (Negative); Ketones,Urine Negative (Negative); Leukocyte Esterase,Urine Large (Negative); Mucus,Urine Many /hpf; Nitrite,Urine Negative (Negative); Protein,Urine Trace (Negative); RBC,Urine 4 /hpf (0-5); Specific Gravity,Urine 1.025 (1.001-1.035); Squamous Epithelial Cell,Urine 14 /hpf (0-4); Urobilinogen,Urine <2.0 mg/dL (<2.0); WBC,Urine 7 /hpf (0-5)
[2021-09-02 16:41] LABS: HGB 9.8 gm/dL (11.4-16.0)
[2021-09-02 17:07] VITALS: RESP 16
--- NOTE | 2021-09-02 17:16 | US ---
EXAMINATION TYPE: Transabdominal DATE OF EXAM: 09/02/2021 5:02 PM COMPARISON: NONE CLINICAL HISTORY: 11 weeks , vag bleeding and cramping. EXAM PERFORMED: Transabdominal (TA) EXAM MEASUREMENTS: GESTATIONAL AGE / DATING Physician Established: Not yet established Dates by LMP: LMP unknown Dates by First Scan: (10 weeks/4 days) EDC: 03-27-21 Dates by Current Scan for: (10 weeks/4 days) EDC: 03-27-21 MATERNAL ANATOMY Uterus: 11.0 x 8.1 x 10.2cm Right Ovary: 2.4 x 1.7 x 2.3cm Left Ovary: not visualized Post CDS / Adnexa: wnl Presence of free fluid: no Complex area adjacent to gestational sac persists measuring 6.0 x 6.6 x 6.5cm on today's ultrasound. GESTATION / SURVEY CRL: 3.7 (10 weeks/4 days) Yolk Sac (normal less than 6mm): 3mm Heart Rate: 168 bpm Rhythm: Normal IUP: Viable IUP Age Appropriate Anatomy Cord Insertion: Visualized Limbs: Visualized Calvarium: Visualized Beta HcG (if available): Not available IMPRESSION: 1. Complex area next to the gestational sac consistent with subchorionic hemorrhage. Overall this trinh s increased from 08/19/2021 and 08/22/2021. Continued attention on short-term follow-up imaging. 2. Single live intrauterine gestation with ultrasound age 10 weeks 4 days.
--- NOTE | 2021-09-02 18:00 | ED ---
Female Urogenital HPI - General Chief complaint: Vaginal Bleeding Stated complaint: 11 WKS PREG/bleeding Time Seen by Provider: 09/02/21 15:39 Source: patient Mode of arrival: ambulatory Limitations: no limitations - History of Present Illness Initial comments: Patient is a 21-year-old female presenting with chief complaint of vaginal bleeding and pelvic cramping. Patient is currently 11 weeks , LMP approximately 5/, . Patient states that she went through 5 large sanitary napkins last night. Patient states that symptoms started while she was incarcerated a few days ago, she was released yesterday. Patient states that she has not been following with an [facility], as she has had difficulty finding one that will accept her insurance and take her on as a high-risk patient. Patient denies any nausea, vomiting, chest pain, shortness of breath, fever, chills, headache, vision or hearing changes, lower extremity swelling, dysuria, ricarda turia, urgency, frequency, back pain. - Related Data Previous Rx's Medication Instructions Recorded Nitrofurantoin Monohyd/M-Cryst 100 mg PO Q12HR 5 Days #10 cap 09/02/21 [Macrobid] Allergies Allergy/AdvReac Type Severity Reaction Status Date / Time Penicillins Allergy Rash/Hives Verified 09/02/21 16:14 Review of Systems ROS Statement: Those systems with pertinent positive or pertinent negative responses have been documented in the HPI. ROS Other: All systems not noted in ROS Statement are negative. Past Medical History Past Medical History: Asthma History of Any Multi-Drug Resistant Organisms: None Reported Past Surgical History: No Surgical Hx Reported Past Anesthesia/Blood Transfusion Reactions: No Reported Reaction Past Psychological History: Anxiety, Bipolar, Depression, Schizophrenia Smoking Status: Vaper Past Alcohol Use History: None Reported Past Drug Use History: Marijuana General Exam Limitations: no limitations General appearance: alert, in no apparent distress Head exam: Present: atraumatic, normocephalic, normal inspection Eye exam: Present: normal appearance, EOMI. Absent: scleral icterus, periorbital swelling Neck exam: Present: normal inspection Respiratory exam: Present: normal lung sounds bilaterally. Absent: respiratory distress, wheezes, rales, rhonchi, stridor Cardiovascular Exam: Present: regular rate, normal rhythm, normal heart sounds. Absent: systolic murmur, diastolic murmur, rubs, gallop, clicks GI/Abdominal exam: Present: soft. Absent: distended, tenderness, guarding, rebound, rigid Neurological exam: Present: alert, oriented X3, CN II-XII intact Psychiatric exam: Present: normal affect, normal mood Skin exam: Present: warm, dry, intact, normal color. Absent: rash Course Vital Signs 09/02/21 09/02/21 09/02/21 14:32 15:50 17:05 Temperature 97.7 F 98.2 F Pulse Rate 76 78 84 Respiratory 16 18 16 Rate Blood Pressure 117/55 131/69 O2 Sat by Pulse 100 98 100 Oximetry 09/02/21 18:17 Temperature 98.7 F Pulse Rate 92 Respiratory 16 Rate Blood Pressure 115/66 O2 Sat by Pulse 99 Oximetry Medical Decision Making - Medical Decision Making Patient is a 21-year-old female currently 11 weeks presenting with chief complaint of pelvic pain and vaginal bleeding. Patient states that symptoms have been ongoing, most recent incident of bleeding was yesterday. Patient states she went through 5 large pads in one night. Patient has not been following with an [facility] that she has had difficulty finding one that accepts her insurance and will take her as a patient. Hemoglobin is 9.8. Urine shows signs of UTI, will prescribe Macrobid 100 mg twice a day for 5 days due to penicillin ALLERGY. Blood type is O+. Ultrasound shows single live intrauterine gestation with approximate age of 10 weeks and 4 days, also shows subchorionic hemorrhage that has increased in size from 7/16. I explained these findings to the patient, I stressed to her the importance of following up with an [facility] in the next 1-2 days. Report back to ER if any new or worsening symptoms. Discussed return parameters answered all questions. Patient conveyed verbal understanding and agreed to the plan. I discussed this case with my attending Dr. Rodrigues - Lab Data Result diagrams: 09/02/21 16:02 09/02/21 16:02 Lab Results 09/02/21 09/02/21 09/02/21 Range/Units 15:35 16:02 16:02 WBC 5.6 (4.0-11.0) k/uL RBC 3.18 L (3.80-5.40) m/uL Hgb 9.8 L D (11.4-16.0) gm/dL Hct 29.2 L (34.0-46.0) % MCV 91.8 (80.0-100.0) fL MCH 30.8 (25.0-35.0) pg MCHC 33.5 (31.0-37.0) g/dL RDW 15.3 (11.5-15.5) % Plt Count 212 (150-450) k/uL MPV 8.6 Neutrophils % 66 % Lymphocytes % 26 % Monocytes % 6 % Eosinophils % 1 % Basophils % 0 % Neutrophils # 3.7 (1.3-7.7) k/uL Lymphocytes # 1.4 (1.0-4.8) k/uL Monocytes # 0.3 (0-1.0) k/uL Eosinophils # 0.0 (0-0.7) k/uL Basophils # 0.0 (0-0.2) k/uL Sodium (137-145) mmol/L Potassium (3.5-5.1) mmol/L Chloride (98-107) mmol/L Carbon Dioxide (22-30) mmol/L Anion Gap mmol/L BUN (7-17) mg/dL Creatinine (0.52-1.04) mg/dL Est GFR (CKD-EPI)AfAm (>60 ml/min/1.73 sqM) Est GFR (CKD-EPI)NonAf (>60 ml/min/1.73 sqM) Glucose (74-99) mg/dL Calcium (8.4-10.2) mg/dL Total Bilirubin (0.2-1.3) mg/dL AST (14-36) U/L ALT (4-34) U/L Alkaline Phosphatase (38-126) U/L Total Protein (6.3-8.2) g/dL Albumin (3.5-5.0) g/dL HCG, Quant mIU/mL Urine Color Yellow Urine Appearance Cloudy H (Clear) Urine pH 6.0 (5.0-8.0) Ur Specific [place] 1.025 (1.001-1.035) Urine Protein Trace H (Negative) Urine Glucose (UA) Negative (Negative) Urine Ketones Negative (Negative) Urine Blood Large H (Negative) Urine Nitrite Negative (Negative) Urine Bilirubin Negative (Negative) Urine Urobilinogen <2.0 (<2.0) mg/dL Ur Leukocyte Esterase Large H (Negative) Urine RBC 4 (0-5) /hpf Urine WBC 7 H (0-5) /hpf Ur Squamous Epith Cells 14 H (0-4) /hpf Calcium Oxalate Crystal Rare H (None) /hpf Urine Bacteria Rare H (None) /hpf Urine Mucus Many H (None) /hpf Blood Type O Positive Blood Type Recheck O Pos Bld Type Recheck Status No 09/02/21 Range/Units 16:02 WBC (4.0-11.0) k/uL RBC (3.80-5.40) m/uL Hgb (11.4-16.0) gm/dL Hct (34.0-46.0) % MCV (80.0-100.0) fL MCH (25.0-35.0) pg MCHC (31.0-37.0) g/dL RDW (11.5-15.5) % Plt Count (150-450) k/uL MPV Neutrophils % % Lymphocytes % % Monocytes % % Eosinophils % % Basophils % % Neutrophils # (1.3-7.7) k/uL Lymphocytes # (1.0-4.8) k/uL Monocytes # (0-1.0) k/uL Eosinophils # (0-0.7) k/uL Basophils # (0-0.2) k/uL Sodium 136 L (137-145) mmol/L Potassium 3.6 (3.5-5.1) mmol/L Chloride 106 (98-107) mmol/L Carbon Dioxide 22 (22-30) mmol/L Anion Gap 8 mmol/L BUN 3 L (7-17) mg/dL Creatinine 0.33 L (0.52-1.04) mg/dL Est GFR (CKD-EPI)AfAm >90 (>60 ml/min/1.73 sqM) Est GFR (CKD-EPI)NonAf >90 (>60 ml/min/1.73 sqM) Glucose 91 (74-99) mg/dL Calcium 9.0 (8.4-10.2) mg/dL Total Bilirubin 0.2 (0.2-1.3) mg/dL AST 18 (14-36) U/L ALT 11 (4-34) U/L Alkaline Phosphatase 51 (38-126) U/L Total Protein 6.5 (6.3-8.2) g/dL Albumin 4.0 (3.5-5.0) g/dL HCG, Quant 027889.0 mIU/mL Urine Color Urine Appearance (Clear) Urine pH (5.0-8.0) Ur Specific [place] (1.001-1.035) Urine Protein (Negative) Urine Glucose (UA) (Negative) Urine Ketones (Negative) Urine Blood (Negative) Urine Nitrite (Negative) Urine Bilirubin (Negative) Urine Urobilinogen (<2.0) mg/dL Ur Leukocyte Esterase (Negative) Urine RBC (0-5) /hpf Urine WBC (0-5) /hpf Ur Squamous Epith Cells (0-4) /hpf Calcium Oxalate Crystal (None) /hpf Urine Bacteria (None) /hpf Urine Mucus (None) /hpf Blood Type Blood Type Recheck Bld Type Recheck Status Disposition Clinical Impression: Threatened Disposition: HOME SELF-CARE Condition: Fair Instructions (If sedation given, give patient instructions): Threatened Miscarriage (ED) Additional Instructions: You must follow up with [facility] in the next 1-2 days. Report back to ER with any new or worsening symptoms. Continue to take vitamin daily. Take medication as prescribed. Prescriptions: Nitrofurantoin Monohyd/M-Cryst [Macrobid] 100 mg PO Q12HR 5 Days #10 cap Is patient prescribed a controlled substance at d/c from ED?: No Referrals: Patti Prakash MD [Primary Care Provider] - 1-2 days Ayana Piña DO [Doctor of Osteopathic Medicine] - 1-2 days Time of Disposition: 18:00
[2021-09-02 18:23] VITALS: BP 115/66; PULSE 92; TEMP 98.7
== END 2021-09-02 18:24 | disposition home or self-care (01) ==
LOC: EC 14:17
DX: O20.0 Threatened abortion (principal); J45.909 Unspecified asthma, uncomplicated; F17.209 Nicotine dependence, unspecified, with unspecified nicotine-induced disorders; Z88.0 Allergy status to penicillin
CPT/HCPCS: 36415; 76801; 80053; 81001; 84702; 85025; 86900; 86901; 96360; 96361; 99284

== ENCOUNTER 2021-09-03 14:12 | Emergency (ER) | payer OTHER ==
[2021-09-03 14:36] VITALS: RESP 18
--- NOTE | 2021-09-03 15:35 | ED ---
General Adult HPI - General Chief complaint: Vaginal Bleeding Stated complaint: 10 week preg, leaking fluids Time Seen by Provider: 09/03/21 15:19 Source: patient, RN notes reviewed Mode of arrival: ambulatory Limitations: no limitations - History of Present Illness Initial comments: 21-year-old female sent emergency department for evaluation of early issues. Patient's had several ER visits here and is had multiple ultrasounds regarding her . Patient's been having ongoing spotting, bleeding, abdominal pain. Patient is A0 states that she is very nervous regarding this . She was seen at [facility] today and had old trauma showed single viable IUP with a heart rate of 186 she states his been when he states throughout her multiple ultrasounds. She is supposed to [facility]-up with [facility]. Patient states she continues to have spotting, bleeding, states that she had some fluid this morning but has not been taken. Patient offers no other associated complaints. - Related Data Previous Rx's Medication Instructions Recorded Nitrofurantoin Monohyd/M-Cryst 100 mg PO Q12HR 5 Days #10 cap 09/02/21 [Macrobid] Allergies Allergy/AdvReac Type Severity Reaction Status Date / Time Penicillins Allergy Rash/Hives Verified 09/03/21 14:36 Review of Systems ROS Statement: Those systems with pertinent positive or pertinent negative responses have been documented in the HPI. ROS Other: All systems not noted in ROS Statement are negative. Past Medical History Past Medical History: Asthma History of Any Multi-Drug Resistant Organisms: None Reported Past Surgical History: No Surgical Hx Reported Past Anesthesia/Blood Transfusion Reactions: No Reported Reaction Past Psychological History: Anxiety, Bipolar, Depression, Schizophrenia Smoking Status: Vaper Past Alcohol Use History: None Reported Past Drug Use History: Marijuana General Exam Limitations: no limitations General appearance: alert, in no apparent distress Head exam: Present: atraumatic, normocephalic, normal inspection Eye exam: Present: normal appearance, PERRL, EOMI. Absent: scleral icterus, conjunctival injection, periorbital swelling Respiratory exam: Present: normal lung sounds bilaterally. Absent: respiratory distress, wheezes, rales, rhonchi, stridor Cardiovascular Exam: Present: regular rate, normal rhythm, normal heart sounds. Absent: systolic murmur, diastolic murmur, rubs, gallop, clicks GI/Abdominal exam: Present: soft, normal bowel sounds. Absent: distended, tenderness, guarding, rebound, rigid Course Vital Signs 09/03/21 14:30 Temperature 97.5 F L Pulse Rate 83 Respiratory 18 Rate Blood Pressure 122/69 O2 Sat by Pulse 100 Oximetry Medical Decision Making - Medical Decision Making 21-year-old presented from for early issues. Patient's had several ER visits, ultrasounds, lab work and states that she had an ultrasound just prior arrival at clinic which showed single viable IUP. Patient denies any severe bleeding currently. Given that she had just recently ultrasound do not f eel there is anything further at this time I did explain to her that the bleeding, fluid leakage and is concerning for threatened miscarriage she is being scheduled with current [facility] and she'll return for any worsening changes symptoms Disposition Clinical Impression: Threatened miscarriage Disposition: HOME SELF-CARE Condition: Stable Instructions (If sedation given, give patient instructions): Threatened Miscarriage (ED) Additional Instructions: Please return to the Emergency Department if symptoms worsen or any other concerns. Is patient prescribed a controlled substance at d/c from ED?: No Referrals: Patti Prakash MD [Primary Care Provider] - 1-2 days Time of Disposition: 15:35
[2021-09-03 15:49] VITALS: BP 125/99; PULSE 79; TEMP 98.4
== END 2021-09-03 15:49 | disposition home or self-care (01) ==
LOC: EC 14:12
DX: O20.0 Threatened abortion (principal); J45.909 Unspecified asthma, uncomplicated; F41.9 Anxiety disorder, unspecified; F31.9 Bipolar disorder, unspecified; F17.290 Nicotine dependence, other tobacco product, uncomplicated; F12.90 Cannabis use, unspecified, uncomplicated; Z88.0 Allergy status to penicillin; Z3A.01 Less than 8 weeks gestation of pregnancy
CPT/HCPCS: 99283

== ENCOUNTER 2021-09-10 06:59 | Emergency (ER) | payer OTHER ==
[2021-09-10 07:07] VITALS: BP 114/71; PULSE 110; RESP 18; TEMP 98
--- NOTE | 2021-09-10 07:58 | ED ---
General Adult HPI - General Chief complaint: Vaginal Bleeding Stated complaint: 14 wks , cramping Time Seen by Provider: 09/10/21 07:14 Source: patient, RN notes reviewed, old records reviewed Mode of arrival: ambulatory Limitations: no limitations - History of Present Illness Initial comments: 21-year-old female presents emergency Department chief complaint of bleeding early . Patient had several visits in the emergency room for this complaint, seen a clinic and schedule with [facility]. Patient states she still is having mild bleeding no significant pain no back pain patient has a history of miscarriage. No dysuria no hematuria no other associated symptoms. - Related Data Previous Rx's Medication Instructions Recorded Nitrofurantoin Monohyd/M-Cryst 100 mg PO Q12HR 5 Days #10 cap 09/02/21 [Macrobid] Allergies Allergy/AdvReac Type Severity Reaction Status Date / Time Penicillins Allergy Rash/Hives Verified 09/10/21 07:07 Review of Systems ROS Statement: Those systems with pertinent positive or pertinent negative responses have been documented in the HPI. ROS Other: All systems not noted in ROS Statement are negative. Past Medical History Past Medical History: Asthma Additional Past Medical History / Comment(s): uterine tear History of Any Multi-Drug Resistant Organisms: None Reported Past Surgical History: No Surgical Hx Reported Past Anesthesia/Blood Transfusion Reactions: No Reported Reaction Past Psychological History: Anxiety, Bipolar, Depression, Schizophrenia Smoking Status: Vaper Past Alcohol Use History: None Reported Past Drug Use History: Marijuana General Exam General appearance: alert, in no apparent distress Head exam: Present: atraumatic, normocephalic, normal inspection Eye exam: Present: normal appearance, PERRL, EOMI. Absent: scleral icterus, conjunctival injection, periorbital swelling Respiratory exam: Present: normal lung sounds bilaterally. Absent: respiratory distress, wheezes, rales, rhonchi, stridor Cardiovascular Exam: Present: regular rate, normal rhythm, normal heart sounds. Absent: systolic murmur, diastolic murmur, rubs, gallop, clicks GI/Abdominal exam: Present: soft, normal bowel sounds. Absent: distended, tenderness, guarding, rebound, rigid Course Vital Signs 09/10/21 07:03 Temperature 98 F Pulse Rate 110 H Respiratory 18 Rate Blood Pressure 114/71 O2 Sat by Pulse 100 Oximetry Medical Decision Making - Medical Decision Making Prior records reviewed heart tones were obtained today patient was discharged in stable condition return parameters were discussed. Disposition Clinical Impression: Threatened miscarriage Disposition: HOME SELF-CARE Condition: Stable Instructions (If sedation given, give patient instructions): Threatened Miscarriage (ED) Additional Instructions: Please return to the Emergency Department if symptoms worsen or any other concerns. Is patient prescribed a controlled substance at d/c from ED?: No Referrals: Patti Prakash MD [Primary Care Provider] - 1-2 days Time of Disposition: 07:57
--- NOTE | 2021-09-10 09:00 | US ---
EXAMINATION TYPE: US OB limited DATE OF EXAM: 09/10/2021 COMPARISON: NONE CLINICAL HISTORY: heart tones. heart tones EXAM PERFORMED: Transabdominal (TA) GESTATIONAL AGE / DATING Physician Established: (11 weeks/6 days) EDC: 03/27/2021 No growth performed on today?s study per ordering physician HEART RATE: 160 bpm RHYTHM: Normal heart tones only were obtained on today's exam. Grayscale and spectral Doppler imaging obtained of the fetus IMPRESSION: Limited exam. heart rate is described.
== END 2021-09-10 08:15 | disposition home or self-care (01) ==
LOC: EC 06:59
DX: O20.0 Threatened abortion (principal); O99.511 Diseases of the respiratory system complicating pregnancy, first trimester; O99.341 Other mental disorders complicating pregnancy, first trimester; F17.210 Nicotine dependence, cigarettes, uncomplicated; F12.90 Cannabis use, unspecified, uncomplicated; Z88.0 Allergy status to penicillin; Z3A.14 14 weeks gestation of pregnancy
CPT/HCPCS: 76815; 99284

== ENCOUNTER 2021-09-13 16:02 | Emergency (ER) | payer OTHER ==
[2021-09-13 16:21] VITALS: RESP 16; TEMP 98.7
[2021-09-13] MEDS ORDERED: SODIUM CHLORIDE 0.9% 1,000 ML IV STA (16:56)
[2021-09-13 17:23] LABS: Basophils % (A) 0 %; Eosinophils # (A) 0.1 k/uL (0-0.7); Eosinophils % (A) 1 %; HCT 29.9 % (34.0-46.0); HGB 9.9 gm/dL (11.4-16.0); Lymphocytes # (A) 1.2 k/uL (1.0-4.8); Lymphocytes % (A) 14 %; MCH 30.7 pg (25.0-35.0); MCHC 33.1 g/dL (31.0-37.0); MCV 92.8 fL (80.0-100.0); Monocytes # (A) 0.4 k/uL (0-1.0); Monocytes % (A) 5 %; Neutrophils # (A) 6.8 k/uL (1.3-7.7); Neutrophils % (A) 79 %; Platelet Count 229 k/uL (150-450); RBC 3.22 m/uL (3.80-5.40); RDW 15.5 % (11.5-15.5); WBC 8.6 k/uL (4.0-11.0)
[2021-09-13 17:26] LABS: Appearance,Urine Clear (Clear); Bilirubin,Urine Negative (Negative); Blood,Urine Large (Negative); Color,Urine Light Yellow; Glucose,Urine (UA) Negative (Negative); Ketones,Urine Negative (Negative); Leukocyte Esterase,Urine Negative (Negative); Mucus,Urine Occasional /hpf; Nitrite,Urine Negative (Negative); PH, Urine 7.5 (5.0-8.0); Protein,Urine Negative (Negative); RBC,Urine 9 /hpf (0-5); Specific Gravity,Urine 1.008 (1.001-1.035); Squamous Epithelial Cell,Urine 2 /hpf (0-4); Urobilinogen,Urine <2.0 mg/dL (<2.0); WBC,Urine 3 /hpf (0-5)
[2021-09-13 17:33] LABS: ALT 11 U/L (4-34); AST 22 U/L (14-36); African American GFR (CKD) >90 (>60 ml/min/1.73 sqM); Albumin 4.2 g/dL (3.5-5.0); Alkaline Phosphatase 54 U/L (38-126); Anion Gap 7 mmol/L; Blood Urea Nitrogen 4 mg/dL (7-17); Calcium 9.4 mg/dL (8.4-10.2); Carbon Dioxide 23 mmol/L (22-30); Chloride 103 mmol/L (98-107); Glucose 104 mg/dL (74-99); Lipase 25 U/L (23-300); Non-African American GFR(CKD) >90 (>60 ml/min/1.73 sqM); Potassium 3.9 mmol/L (3.5-5.1); Sodium 133 mmol/L (137-145); Total Bilirubin 0.4 mg/dL (0.2-1.3); Total Protein 6.8 g/dL (6.3-8.2)
--- NOTE | 2021-09-13 17:51 | US ---
EXAMINATION TYPE: Transabdominal DATE OF EXAM: 09/13/2021 5:40 PM COMPARISON: Multiple priors 09/02/2021 CLINICAL HISTORY: vaginal bleeding, hx of subchorionic hem. Pt states vaginal bleeding and cramping- pt has known subchorionic bleed EXAM PERFORMED: Transabdominal (TA) EXAM MEASUREMENTS: GESTATIONAL AGE / DATING Physician Established: Not yet established Dates by LMP: LMP unknown Dates by First Scan: (12 weeks/1 days) EDC: 03/27/2022 Dates by Current Scan for: (12 weeks/2 days) EDC: 03/26/2022 MATERNAL ANATOMY Uterus: 13.6 x 9.5 x 10.5 cm Right Ovary: 2.6 x 2.5 x 1.9 cm Left Ovary: 2.5 x 2.3 x 1.2 cm Post CDS / Adnexa: wnl Presence of free fluid: No Presence of subchorionic bleed: Yes- 8.4 x 7.4 x 9.3 cm- has increased in size when compared to all o ther priors GESTATION / SURVEY CRL: 5.7 cm (12 weeks/2 days) MSD: wnl Heart Rate: 169 bpm Rhythm: Normal IUP: Viable IUP Single, viable IUP- subchorionic bleed increasing in size when compared to priors IMPRESSION: The subchorionic hemorrhage is slightly larger than previous exam but compared to the gestational sac the size is relatively decreased.
--- NOTE | 2021-09-13 18:15 | ED ---
Female Urogenital HPI - General Chief complaint: Vaginal Bleeding Stated complaint: 14wks pg bleeding Time Seen by Provider: 09/13/21 16:39 Source: patient Mode of arrival: ambulatory Limitations: no limitations - History of Present Illness Initial comments: Patient is a 21-year-old A1 female approximated 14 weeks who presents to the emergency department with a chief complaint of vaginal bleeding. Patient states she has been experiencing vaginal bleeding since August. Patient has been evaluated in our emergency department several times recently and was diagnosed with a subchorionic hemorrhage. Patient states her bleeding has increased. States she has saturated 12 pads today with a couple dime sized clots. Patient endorses lower abdominal cramping. States she has taken Tylenol with little relief. He reports that since the vaginal bleeding she has had continuous pelvic rest without use of tampons or sexual intercourse. She denies fever, chills, dizziness, lightheadedness, chest pain, shortness of breath, nausea, vomiting, and burning with urination. Denies concern for sexual transmitted infections. Patient has history of miscarriage her previous at approximately 2 months. Patient has not seen her nail galvanizer yet. States she does not know which OB she will see but has appointment with [facility] on October 15. - Related Data Previous Rx's Medication Instructions Recorded Nitrofurantoin Monohyd/M-Cryst 100 mg PO Q12HR 5 Days #10 cap 09/02/21 [Macrobid] Ferrous Sulfate [Iron (65 MG 325 mg PO BID 30 Days #60 tab 09/13/21 Elemental)] Allergies Allergy/AdvReac Type Severity Reaction Status Date / Time Penicillins Allergy Rash/Hives Verified 09/13/21 16:21 Review of Systems ROS Statement: Those systems with pertinent positive or pertinent negative responses have been documented in the HPI. ROS Other: All systems not noted in ROS Statement are negative. Past Medical History Past Medical History: Asthma Additional Past Medical History / Comment(s): uterine tear History of Any Multi-Drug Resistant Organisms: None Reported Past Surgical History: No Surgical Hx Reported Past Anesthesia/Blood Transfusion Reactions: No Reported Reaction Past Psychological History: Anxiety, Bipolar, Depression, Schizophrenia Smoking Status: Vaper Past Alcohol Use History: None Reported Past Drug Use History: Marijuana General Exam Limitations: no limitations General appearance: alert, in no apparent distress Head exam: Present: atraumatic, normocephalic, normal inspection Eye exam: Present: normal appearance, PERRL, EOMI. Absent: scleral icterus, conjunctival injection, periorbital swelling Respiratory exam: Present: normal lung sounds bilaterally. Absent: respiratory distress, wheezes, rales, rhonchi, stridor Cardiovascular Exam: Present: regular rate, normal rhythm, normal heart sounds. Absent: systolic murmur, diastolic murmur, rubs, gallop, clicks GI/Abdominal exam: Present: soft, normal bowel sounds. Absent: distended, tenderness, guarding, rebound, rigid Extremities exam: Present: normal inspection Neurological exam: Present: alert, oriented X3, CN II-XII intact Psychiatric exam: Present: normal affect, normal mood Skin exam: Present: warm, dry, intact, normal color. Absent: rash Course Vital Signs 09/13/21 09/13/21 16:19 18:39 Temperature 98.7 F Pulse Rate 93 91 Respiratory 16 16 Rate Blood Pressure 108/63 111/67 O2 Sat by Pulse 98 99 Oximetry Medical Decision Making - Medical Decision Making This is a 21-year-old female female at approximately 14 weeks recently diagnosed with subchorionic hemorrhage who presents to the emergency department with heavy vaginal bleeding. thorough history and examination were performed. Laboratory studies obtained. Hemoglobin is 9.9, consistent with last visit on September 02. Serum hCG is 142, 524. ultrasound shows a single viable IUP with heart rate 169. There is subchorionic hemorrhage is slightly larger than previous exam but compared to the gestational sac the size is relatively decreased. Case discussed with nail galvanizer Dr. Mendez who recommends to continue pelvic rest and BID iron pills. This was discussed with patient. Patient reassured that baby is healthy today. Patient to return with strict return parameters. She is to follow-up with her OB as scheduled. She verbalizes understanding and is agreeable to this plan. Dr. Nieves is my attending. - Lab Data Result diagrams: 09/13/21 17:09 09/13/21 17:09 Lab Results 09/13/21 09/13/21 09/13/21 Range/Units 17:04 17:09 17:09 WBC 8.6 (4.0-11.0) k/uL RBC 3.22 L (3.80-5.40) m/uL Hgb 9.9 L (11.4-16.0) gm/dL Hct 29.9 L (34.0-46.0) % MCV 92.8 (80.0-100.0) fL MCH 30.7 (25.0-35.0) pg MCHC 33.1 (31.0-37.0) g/dL RDW 15.5 (11.5-15.5) % Plt Count 229 (150-450) k/uL MPV 8.0 Neutrophils % 79 % Lymphocytes % 14 % Monocytes % 5 % Eosinophils % 1 % Basophils % 0 % Neutrophils # 6.8 (1.3-7.7) k/uL Lymphocytes # 1.2 (1.0-4.8) k/uL Monocytes # 0.4 (0-1.0) k/uL Eosinophils # 0.1 (0-0.7) k/uL Basophils # 0.0 (0-0.2) k/uL Sodium 133 L (137-145) mmol/L Potassium 3.9 (3.5-5.1) mmol/L Chloride 103 (98-107) mmol/L Carbon Dioxide 23 (22-30) mmol/L Anion Gap 7 mmol/L BUN 4 L (7-17) mg/dL Creatinine 0.32 L (0.52-1.04) mg/dL Est GFR (CKD-EPI)AfAm >90 (>60 ml/min/1.73 sqM) Est GFR (CKD-EPI)NonAf >90 (>60 ml/min/1.73 sqM) Glucose 104 H (74-99) mg/dL Calcium 9.4 (8.4-10.2) mg/dL Total Bilirubin 0.4 (0.2-1.3) mg/dL AST 22 (14-36) U/L ALT 11 (4-34) U/L Alkaline Phosphatase 54 (38-126) U/L Total Protein 6.8 (6.3-8.2) g/dL Albumin 4.2 (3.5-5.0) g/dL Lipase 25 (23-300) U/L HCG, Quant 282003.0 mIU/mL Urine Color Urine Appearance (Clear) Urine pH (5.0-8.0) Ur Specific [place] (1.001-1.035) Urine Protein (Negative) Urine Glucose (UA) (Negative) Urine Ketones (Negative) Urine Blood (Negative) Urine Nitrite (Negative) Urine Bilirubin (Negative) Urine Urobilinogen (<2.0) mg/dL Ur Leukocyte Esterase (Negative) Urine RBC (0-5) /hpf Urine WBC (0-5) /hpf Ur Squamous Epith Cells (0-4) /hpf Urine Mucus (None) /hpf Blood Type O Positive Blood Type Recheck O Pos Bld Type Recheck Status No Antibody Screen NEGATIVE Spec Expiration Date 09/16/2021230309/13/21 Range/Units 17:12 WBC (4.0-11.0) k/uL RBC (3.80-5.40) m/uL Hgb (11.4-16.0) gm/dL Hct (34.0-46.0) % MCV (80.0-100.0) fL MCH (25.0-35.0) pg MCHC (31.0-37.0) g/dL RDW (11.5-15.5) % Plt Count (150-450) k/uL MPV Neutrophils % % Lymphocytes % % Monocytes % % Eosinophils % % Basophils % % Neutrophils # (1.3-7.7) k/uL Lymphocytes # (1.0-4.8) k/uL Monocytes # (0-1.0) k/uL Eosinophils # (0-0.7) k/uL Basophils # (0-0.2) k/uL Sodium (137-145) mmol/L Potassium (3.5-5.1) mmol/L Chloride (98-107) mmol/L Carbon Dioxide (22-30) mmol/L Anion Gap mmol/L BUN (7-17) mg/dL Creatinine (0.52-1.04) mg/dL Est GFR (CKD-EPI)AfAm (>60 ml/min/1.73 sqM) Est GFR (CKD-EPI)NonAf (>60 ml/min/1.73 sqM) Glucose (74-99) mg/dL Calcium (8.4-10.2) mg/dL Total Bilirubin (0.2-1.3) mg/dL AST (14-36) U/L ALT (4-34) U/L Alkaline Phosphatase (38-126) U/L Total Protein (6.3-8.2) g/dL Albumin (3.5-5.0) g/dL Lipase (23-300) U/L HCG, Quant mIU/mL Urine Color Light Yellow Urine Appearance Clear (Clear) Urine pH 7.5 (5.0-8.0) Ur Specific [place] 1.008 (1.001-1.035) Urine Protein Negative (Negative) Urine Glucose (UA) Negative (Negative) Urine Ketones Negative (Negative) Urine Blood Large H (Negative) Urine Nitrite Negative (Negative) Urine Bilirubin Negative (Negative) Urine Urobilinogen <2.0 (<2.0) mg/dL Ur Leukocyte Esterase Negative (Negative) Urine RBC 9 H (0-5) /hpf Urine WBC 3 (0-5) /hpf Ur Squamous Epith Cells 2 (0-4) /hpf Urine Mucus Occasional H (None) /hpf Blood Type Blood Type Recheck Bld Type Recheck Status Antibody Screen Spec Expiration Date Disposition Clinical Impression: Subchorionic hemorrhage Disposition: HOME SELF-CARE Condition: Fair Instructions (If sedation given, give patient instructions): Subchorionic Hemorrhage (ED) Additional Instructions: Take medication as directed. Please follow up with your nail galvanizer as scheduled on October 15. Return to the emergency department if you experience new, concerning, or worsening symptoms. Prescriptions: Ferrous Sulfate [Iron (65 MG Elemental)] 325 mg PO BID 30 Days #60 tab Is patient prescribed a controlled substance at d/c from ED?: No Referrals: Patti Prakash MD [Primary Care Provider] - 1-2 days Time of Disposition: 18:15
[2021-09-13 18:40] VITALS: BP 111/67; PULSE 91
== END 2021-09-13 18:40 | disposition home or self-care (01) ==
LOC: EC 16:02
DX: O20.8 Other hemorrhage in early pregnancy (principal); O99.321 Drug use complicating pregnancy, first trimester; O99.331 Smoking (tobacco) complicating pregnancy, first trimester; O99.341 Other mental disorders complicating pregnancy, first trimester; Z3A.14 14 weeks gestation of pregnancy; Z88.0 Allergy status to penicillin; J45.909 Unspecified asthma, uncomplicated; F41.9 Anxiety disorder, unspecified; F31.9 Bipolar disorder, unspecified; F20.9 Schizophrenia, unspecified; F17.290 Nicotine dependence, other tobacco product, uncomplicated
CPT/HCPCS: 36415; 76801; 80053; 81001; 83690; 84702; 85025; 86850; 86900; 86901; 96360; 99284

== ENCOUNTER 2021-10-01 05:41 | Observation (INO) | payer OTHER ==
[2021-10-01] MEDS ORDERED: SODIUM CHLORIDE 0.9% 500 ML 500 ML IV STA (06:03)
[2021-10-01] MEDS ORDERED: MORPHINE SULFATE 2 MG/ML SYRINGE IVP ONE (06:11)
--- NOTE | 2021-10-01 06:11 | ED ---
General Adult HPI - General Chief complaint: Vaginal Bleeding Stated complaint: 14 wks , abd pain, bleeding Time Seen by Provider: 10/01/21 06:00 Source: patient, RN notes reviewed, old records reviewed Mode of arrival: ambulatory Limitations: no limitations - History of Present Illness Initial comments: This is a 21-year-old well-appearing female that presents to the emergency room with lower pelvic cramping and vaginal bleeding. She states that she is 14 weeks and she's had vaginal bleeding since August 10. She was diagnosed with subchorionic bleed and has been seeing Dr. Knox. She's had increased bleeding with large clots for the past 24 hours with increased pain. She said the blood clots seem to have a different consistency and large clots are the size of her palm. States she is going through 3 pads an hour. She denies any chest pain or shortness of breath. She is a , previous ended in miscarriage at 2 months. -: month(s) (since August 10) Location: pelvis Radiation: back Severity scale (1-10): 9 Quality: constant, other (cramping) Consistency: constant Improves with: none Worsens with: none Associated Symptoms: other (Vaginal bleeding) - Related Data Home Medications Medication Instructions Recorded Confirmed Ferrous Sulfate [Iron] 325 mg PO DAILY 10/01/21 10/01/21 Allergies Allergy/AdvReac Type Severity Reaction Status Date / Time Penicillins Allergy Rash/Hives Verified 10/01/21 08:47 Review of Systems ROS Statement: Those systems with pertinent positive or pertinent negative responses have been documented in the HPI. ROS Other: All systems not noted in ROS Statement are negative. Past Medical History Past Medical History: Asthma Additional Past Medical History / Comment(s): uterine tear History of Any Multi-Drug Resistant Organisms: None Reported Past Surgical History: No Surgical Hx Reported Past Anesthesia/Blood Transfusion Reactions: No Reported Reaction Past Psychological History: Anxiety, Bipolar, Depression, Schizophrenia Smoking Status: Former smoker, Vaper Past Alcohol Use History: None Reported Past Drug Use History: Marijuana - Past Family History Father Family Medical History: Hypertension Additional Family Medical History / Comment(s): heart murmur as child, bells palsy General Exam Limitations: no limitations General appearance: alert, in no apparent distress Head exam: Present: atraumatic Eye exam: Absent: scleral icterus, conjunctival injection, periorbital swelling ENT exam: Present: mucous membranes moist Neck exam: Present: full ROM. Absent: meningismus Respiratory exam: Present: normal lung sounds bilaterally. Absent: respiratory distress, accessory muscle use Cardiovascular Exam: Present: regular rate Speculum exam: Present: vaginal bleeding Expanded Speculum exam: Present: cervical OS open, vaginal bleeding Extremities exam: Present: normal capillary refill. Absent: pedal edema Neurological exam: Present: alert, oriented X3, normal gait Psychiatric exam: Present: normal affect, normal mood Skin exam: Present: warm, dry, normal color. Absent: cyanosis, diaphoretic, petechiae Course Vital Signs 10/01/21 10/01/21 10/01/21 05:43 07:00 08:25 Temperature 98.3 F Pulse Rate 84 92 Respiratory 20 22 Rate Blood Pressure 126/87 99/56 111/66 O2 Sat by Pulse 98 98 Oximetry - Reevaluation(s) Reevaluation #1: 10/01/21 08:30 I did speak with Dr. Manjarrez who states she or Dr Piña will come in and see patient. Time: 08:30 Medical Decision Making - Medical Decision Making 21-year-old female patient presents to the emergency room with increased vaginal bleeding and 9/10 pelvic pain and cramping radiating into her back. Patient states she passed 2 large clots the size of her hand. States going through multiple pads an hour. She denies any fevers. Abdomen is soft and minimally tender. Patient has had multiple ultrasounds with this , ultrasound on September 13 showed a single IUP with a worsening subchorionic bleed. Blood type O+. His vital signs are stable. Hemoglobin and hematocrit are improved from previous labs. Large subchorionic bleed 7.4 cm. No amniotic fluid visualized, head appears to be in the cervix. Heart rate visualized 167. Suspicious for impending spontaneous . Pelvic exam was completed after ultrasound with no evidence of tissue, os is open approximately 1cm. Moderate amount of bleeding noted. She continues to have abdominal cramping and pain after several doses of morphine. I did speak with Dr. Manjarrez and Dr. Piña, patient will be admitted and sent to OB for continuation of care. Case discussed with Dr. Maciel. - Lab Data Result diagrams: 10/01/21 06:31 10/01/21 06:31 Lab Results 10/01/21 10/01/21 10/01/21 Range/Units 06:31 06:31 06:31 WBC 11.4 H (4.0-11.0) k/uL RBC 3.63 L (3.80-5.40) m/uL Hgb 11.0 L (11.4-16.0) gm/dL Hct 33.3 L (34.0-46.0) % MCV 91.7 (80.0-100.0) fL MCH 30.2 (25.0-35.0) pg MCHC 33.0 (31.0-37.0) g/dL RDW 13.9 (11.5-15.5) % Plt Count 262 (150-450) k/uL MPV 8.5 Neutrophils % 81 % Lymphocytes % 13 % Monocytes % 5 % Eosinophils % 1 % Basophils % 0 % Neutrophils # 9.2 H (1.3-7.7) k/uL Lymphocytes # 1.4 (1.0-4.8) k/uL Monocytes # 0.6 (0-1.0) k/uL Eosinophils # 0.1 (0-0.7) k/uL Basophils # 0.0 (0-0.2) k/uL PT (9.0-12.0) sec INR (<1.2) APTT (22.0-30.0) sec Sodium 135 L (137-145) mmol/L Potassium 3.4 L (3.5-5.1) mmol/L Chloride 104 (98-107) mmol/L Carbon Dioxide 19 L (22-30) mmol/L Anion Gap 12 mmol/L BUN 2 L (7-17) mg/dL Creatinine 0.39 L (0.52-1.04) mg/dL Est GFR (CKD-EPI)AfAm >90 (>60 ml/min/1.73 sqM) Est GFR (CKD-EPI)NonAf >90 (>60 ml/min/1.73 sqM) Glucose 88 (74-99) mg/dL Calcium 9.3 (8.4-10.2) mg/dL Lactate Dehydrogenase 524 (313-618) U/L HCG, Quant 87744.4 mIU/mL Urine Color Yellow Urine Appearance Cloudy H (Clear) Urine pH 7.0 (5.0-8.0) Ur Specific [place] 1.011 (1.001-1.035) Urine Protein Trace H (Negative) Urine Glucose (UA) Negative (Negative) Urine Ketones Negative (Negative) Urine Blood Large H (Negative) Urine Nitrite Negative (Negative) Urine Bilirubin Negative (Negative) Urine Urobilinogen <2.0 (<2.0) mg/dL Ur Leukocyte Esterase Moderate H (Negative) Urine RBC 3 (0-5) /hpf Urine WBC 6 H (0-5) /hpf Ur Squamous Epith Cells <1 (0-4) /hpf Amorphous Sediment Moderate H (None) /hpf Urine Bacteria Rare H (None) /hpf Urine Mucus Few H (None) /hpf Urine Opiates Screen (NotDetected) Ur Oxycodone Screen (NotDetected) Urine Methadone Screen (NotDetected) Ur Propoxyphene Screen (NotDetected) Ur Barbiturates Screen (NotDetected) U Tricyclic Antidepress (NotDetected) Ur Phencyclidine Scrn (NotDetected) Ur Amphetamines Screen (NotDetected) U Methamphetamines Scrn (NotDetected) U Benzodiazepines Scrn (NotDetected) Urine Cocaine Screen (NotDetected) U Marijuana (THC) Screen (NotDetected) 10/01/21 10/01/21 Range/Units 06:31 07:22 WBC (4.0-11.0) k/uL RBC (3.80-5.40) m/uL Hgb (11.4-16.0) gm/dL Hct (34.0-46.0) % MCV (80.0-100.0) fL MCH (25.0-35.0) pg MCHC (31.0-37.0) g/dL RDW (11.5-15.5) % Plt Count (150-450) k/uL MPV Neutrophils % % Lymphocytes % % Monocytes % % Eosinophils % % Basophils % % Neutrophils # (1.3-7.7) k/uL Lymphocytes # (1.0-4.8) k/uL Monocytes # (0-1.0) k/uL Eosinophils # (0-0.7) k/uL Basophils # (0-0.2) k/uL PT 10.5 (9.0-12.0) sec INR 1.0 (<1.2) APTT 26.6 (22.0-30.0) sec Sodium (137-145) mmol/L Potassium (3.5-5.1) mmol/L Chloride (98-107) mmol/L Carbon Dioxide (22-30) mmol/L Anion Gap mmol/L BUN (7-17) mg/dL Creatinine (0.52-1.04) mg/dL Est GFR (CKD-EPI)AfAm (>60 ml/min/1.73 sqM) Est GFR (CKD-EPI)NonAf (>60 ml/min/1.73 sqM) Glucose (74-99) mg/dL Calcium (8.4-10.2) mg/dL Lactate Dehydrogenase (313-618) U/L HCG, Quant mIU/mL Urine Color Urine Appearance (Clear) Urine pH (5.0-8.0) Ur Specific [place] (1.001-1.035) Urine Protein (Negative) Urine Glucose (UA) (Negative) Urine Ketones (Negative) Urine Blood (Negative) Urine Nitrite (Negative) Urine Bilirubin (Negative) Urine Urobilinogen (<2.0) mg/dL Ur Leukocyte Esterase (Negative) Urine RBC (0-5) /hpf Urine WBC (0-5) /hpf Ur Squamous Epith Cells (0-4) /hpf Amorphous Sediment (None) /hpf Urine Bacteria (None) /hpf Urine Mucus (None) /hpf Urine Opiates Screen Not Detected (NotDetected) Ur Oxycodone Screen Not Detected (NotDetected) Urine Methadone Screen Not Detected (NotDetected) Ur Propoxyphene Screen Not Detected (NotDetected) Ur Barbiturates Screen Not Detected (NotDetected) U Tricyclic Antidepress Not Detected (NotDetected) Ur Phencyclidine Scrn Not Detected (NotDetected) Ur Amphetamines Screen Not Detected (NotDetected) U Methamphetamines Scrn Not Detected (NotDetected) U Benzodiazepines Scrn Not Detected (NotDetected) Urine Cocaine Screen Not Detected (NotDetected) U Marijuana (THC) Screen Detected H (NotDetected) Disposition Clinical Impression: Inevitable Disposition: ADMITTED IP TO THIS HOSP Is patient prescribed a controlled substance at d/c from ED?: No Decision to Admit Reason: Admit from EC Decision Date: 10/01/21 Decision Time: 08:42
[2021-10-01] MEDS ORDERED: MORPHINE SULFATE 4 MG/ML SYRINGE IVP STA ×3 (06:14→08:35)
[2021-10-01] MEDS ORDERED: diphenhydrAMINE 50 MG/ML 1 ML VIAL IVP STA (06:30)
[2021-10-01] MEDS ORDERED: SODIUM CHLORIDE 0.9% 500 ML 500 ML IV ONE (06:39)
[2021-10-01 06:47] LABS: Basophils % (A) 0 %; Eosinophils # (A) 0.1 k/uL (0-0.7); Eosinophils % (A) 1 %; HCT 33.3 % (34.0-46.0); Lymphocytes # (A) 1.4 k/uL (1.0-4.8); Lymphocytes % (A) 13 %; MCH 30.2 pg (25.0-35.0); MCV 91.7 fL (80.0-100.0); Mean Platelet Volume 8.5; Monocytes # (A) 0.6 k/uL (0-1.0); Monocytes % (A) 5 %; Neutrophils # (A) 9.2 k/uL (1.3-7.7); Neutrophils % (A) 81 %; Platelet Count 262 k/uL (150-450); RBC 3.63 m/uL (3.80-5.40); RDW 13.9 % (11.5-15.5); WBC 11.4 k/uL (4.0-11.0)
[2021-10-01 06:51] LABS: African American GFR (CKD) >90 (>60 ml/min/1.73 sqM); Anion Gap 12 mmol/L; Blood Urea Nitrogen 2 mg/dL (7-17); Calcium 9.3 mg/dL (8.4-10.2); Carbon Dioxide 19 mmol/L (22-30); Chloride 104 mmol/L (98-107); Glucose 88 mg/dL (74-99); LDH 524 U/L (313-618); Non-African American GFR(CKD) >90 (>60 ml/min/1.73 sqM); Potassium 3.4 mmol/L (3.5-5.1); Sodium 135 mmol/L (137-145)
[2021-10-01 06:57] LABS: Amorphous Sediment,Urine Moderate /hpf; Appearance,Urine Cloudy (Clear); Bacteria,Urine Rare /hpf; Bilirubin,Urine Negative (Negative); Blood,Urine Large (Negative); Color,Urine Yellow; Glucose,Urine (UA) Negative (Negative); Ketones,Urine Negative (Negative); Leukocyte Esterase,Urine Moderate (Negative); Mucus,Urine Few /hpf; Nitrite,Urine Negative (Negative); Protein,Urine Trace (Negative); RBC,Urine 3 /hpf (0-5); Specific Gravity,Urine 1.011 (1.001-1.035); Squamous Epithelial Cell,Urine <1 /hpf (0-4); Urobilinogen,Urine <2.0 mg/dL (<2.0); WBC,Urine 6 /hpf (0-5)
[2021-10-01] MEDS ORDERED: ONDANSETRON 4 MG/2 ML VIAL IVP STA (07:42)
[2021-10-01 08:04] LABS: Partial Thromboplastin Time 26.6 sec (22.0-30.0); Prothrombin Time 10.5 sec (9.0-12.0)
--- NOTE | 2021-10-01 08:08 | US ---
EXAMINATION TYPE: Transabdominal DATE OF EXAM: 10/01/2021 7:45 AM COMPARISON: Most recent ultrasound 18 days ago CLINICAL HISTORY: 14 wks preg, bleeding, known subchorionic bleed. Bleeding large clots cramping know n bleed. EXAM MEASUREMENTS: GESTATIONAL AGE / DATING Physician Established: (14 weeks/6 days) EDC: 03/26/2022 Dates by LMP: (14 weeks/6 days) EDC: 03/26/2022 Dates by First Scan: (7 weeks/2 days) EDC: 03/27/2022 Dates by Current Scan for: (14 weeks/1 days) EDC: 03/26/2022 MATERNAL ANATOMY Uterus: 14 x 8.5 x 10.7 cm Presence of free fluid: no Presence of corpus luteal cyst: no Presence of subchorionic bleed: yes 7.4 cm increased in size since previous exam. GESTATION / SURVEY CRL: 8.3 cm (14 weeks/1 days) Heart Rate: 167 bpm Rhythm: Normal IUP: Viable IUP Beta HcG (if available): Not available at this time Large subchorionic bleed 7.4 cm. No amnionic fluid visualized baby head appears to be in the cervix. Heart rate is visualized at 167 BPM. Redemonstration of single live intrauterine gestation. Redemonstration of large subchorionic hemorrha ge. Fetus is low lying with head projecting into the cervix. Lack of surrounding amniotic fluid now present. No free fluid identified. Ovaries not assessed. IMPRESSION: Findings suspicious for impending spontaneous .
[2021-10-01 08:31] LABS: Amphetamine Screen,Urine Not Detected (NotDetected); Barbiturate Screen,Urine Not Detected (NotDetected); Benzodiazepines Screen,Urine Not Detected (NotDetected); Cocaine Screen,Urine Not Detected (NotDetected); Methadone Screen, Urine Not Detected (NotDetected); Opiate Screen,Urine Not Detected (NotDetected); Oxycodone Screen, Urine Not Detected (NotDetected); Phencyclidine Screen,Urine Not Detected (NotDetected); Tricyclic Antidepressant,Urine Not Detected (NotDetected); Urn Cannabinoid Scrn Detected (NotDetected)
[2021-10-01] MEDS ORDERED: MORPHINE SULFATE 2 MG/ML SYRINGE IVP STA ×2 (08:31→08:35)
[2021-10-01 08:34] LABS: HCG,Quantitative Serum 98616.4 mIU/mL
[2021-10-01] MEDS ORDERED: NALOXONE 0.4 MG/ML 1 ML VIAL IV PRN (08:40)
[2021-10-01] MEDS ORDERED: BUTORPHANOL 1 MG/ML 1 ML VIAL IV PRN (09:09)
[2021-10-01] MEDS ORDERED: LACTATED RINGERS 1,000 ML IV SCH (09:30)
[2021-10-01 10:09] VITALS: BP 125/74; PULSE 96
[2021-10-01] MEDS ORDERED: ROPIVACAINE 100 MG, fentaNYL (PF). 200 MCG in SODIUM CHLORIDE 0.9% 76 ML EPIDURAL ONE (11:03)
--- NOTE | 2021-10-01 15:40 | US ---
EXAMINATION TYPE: US pelvis complete transvag DATE OF EXAM: 10/01/2021 COMPARISON: Recent OB's only CLINICAL HISTORY: ? retained prod concep post 14 week delivery. s/p 14 week delivery R/O retained pro ducts TECHNIQUE: Transvaginal (TV) and Transabdominal (TA) . Transabdominal sonographic images of the pel vis were acquired. Transvaginal sonographic images were medically necessary to better assess the fol lowing anatomy: Lower uterus EXAM MEASUREMENTS: Uterus: 15.9 x 6.4 x 6.8 cm Endometrial Stripe: 0.8 cm at fundus 2.3 cm at lower uterine segment Right Ovary: 3.3 x 2.3 x 2.1 cm Left Ovary: 3.4 x 2.6 x 1.8 cm 1. Uterus: Anteverted 2. Endometrium: Endo appeared wnl at fundus, thickened at lower uterine segment and cervix 3. Right Ovary: wnl 4. Left Ovary: wnl 5. Bilateral Adnexa: wnl 6. Posterior cul-de-sac: wnl IMPRESSION: Findings may represent retained products of conception in the lower uterine segment
--- NOTE | 2021-10-01 16:05 | P.HPOB ---
History of Present Illness H&P Date: 10/01/21 Chief Complaint: IUP at 14 weeks, vaginal bleeding, labor This is a 21-year-old 2 para 0010 at approximately 14 weeks of gestation with known subchorionic hemorrhage. Patient initially presented to the emergency department with increased vaginal bleeding. Patient has a known subchorionic hemorrhage of 6 cm that was seen on ultrasound this week. Patient states around 4:30 AM she noted contractions and increased vaginal bleeding. Patient then presented to the emergency department with these complaints. Patient is Rh+. Patient has been in and out of the ER with vaginal bleeding multiple times. Review of Systems Constitutional: Reports fatigue, Denies chills, Denies fever Ears, nose, mouth and throat: Denies headache Cardiovascular: Denies leg edema Respiratory: Denies dyspnea Gastrointestinal: Denies constipation, Denies diarrhea, Denies nausea, Denies vomiting Genitourinary: Reports Past Medical History Past Medical History: Asthma Additional Past Medical History / Comment(s): uterine tear History of Any Multi-Drug Resistant Organisms: None Reported Past Surgical History: No Surgical Hx Reported Past Anesthesia/Blood Transfusion Reactions: No Reported Reaction Past Psychological History: Anxiety, Bipolar, Depression, Schizophrenia Smoking Status: Former smoker, Vaper Past Alcohol Use History: None Reported Past Drug Use History: Marijuana Medications and Allergies Home Medications Medication Instructions Recorded Confirmed Type No Known Home Medications 10/01/21 10/01/21 History Allergies Allergy/AdvReac Type Severity Reaction Status Date / Time Penicillins Allergy Rash/Hives Verified 10/01/21 08:47 Exam Osteopathic Statement: *. No significant issues noted on an osteopathic structural exam other than those noted in the History and Physical/Consult. Vital Signs Temp Pulse Resp BP Pulse Ox 10/01/21 08:25 92 22 111/66 98 10/01/21 07:00 99/56 10/01/21 05:43 98.3 F 84 20 126/87 98 Intake and Output 09/30/21 10/01/21 10/01/21 22:59 06:59 14:59 Other: Weight 50.802 kg Targeted physical exam is performed and state in general this is a well- nourished well-developed female in obvious distress, patient is breathing and uncomfortable with contractions about every 2 minutes. Breathing appears nonlabored, heart has a regular rate and rhythm, abdomen is gravid, on cervical exam it is difficult to assess cervical dilation secondary to maternal discomfort, bulging bag/ tissue noted within the vagina. Results Result Diagrams: 10/01/21 06:31 10/01/21 06:31 Abnormal Lab Results - Last 24 Hours (Table) 10/01/21 10/01/21 10/01/21 Range/Units 06:31 06:31 06:31 WBC 11.4 H (4.0-11.0) k/uL RBC 3.63 L (3.80-5.40) m/uL Hgb 11.0 L (11.4-16.0) gm/dL Hct 33.3 L (34.0-46.0) % Neutrophils # 9.2 H (1.3-7.7) k/uL Sodium 135 L (137-145) mmol/L Potassium 3.4 L (3.5-5.1) mmol/L Carbon Dioxide 19 L (22-30) mmol/L BUN 2 L (7-17) mg/dL Creatinine 0.39 L (0.52-1.04) mg/dL Urine Appearance Cloudy H (Clear) Urine Protein Trace H (Negative) Urine Blood Large H (Negative) Ur Leukocyte Esterase Moderate H (Negative) Urine WBC 6 H (0-5) /hpf Amorphous Sediment Moderate H (None) /hpf Urine Bacteria Rare H (None) /hpf Urine Mucus Few H (None) /hpf U Marijuana (THC) Screen (NotDetected) 10/01/21 Range/Units 06:31 WBC (4.0-11.0) k/uL RBC (3.80-5.40) m/uL Hgb (11.4-16.0) gm/dL Hct (34.0-46.0) % Neutrophils # (1.3-7.7) k/uL Sodium (137-145) mmol/L Potassium (3.5-5.1) mmol/L Carbon Dioxide (22-30) mmol/L BUN (7-17) mg/dL Creatinine (0.52-1.04) mg/dL Urine Appearance (Clear) Urine Protein (Negative) Urine Blood (Negative) Ur Leukocyte Esterase (Negative) Urine WBC (0-5) /hpf Amorphous Sediment (None) /hpf Urine Bacteria (None) /hpf Urine Mucus (None) /hpf U Marijuana (THC) Screen Detected H (NotDetected) Assessment and Plan (1) Inevitable Current Visit: Yes Status: Acute Code(s): O03.4 - INCOMPLETE SPONTANEOUS WITHOUT COMPLICATION SNOMED Code(s): 11032809 (2) Subchorionic hemorrhage Current Visit: No Status: Acute Code(s): O41.8X90 - OTH DISRD OF AMNIOTIC FLUID AND MEMBRNS, UNSP TRI, UNSP; O46.8X9 - OTHER ANTEPARTUM HEMORRHAGE, UNSPECIFIED TRIMESTER SNOMED Code(s): 574558591 Plan: 21-year-old at approximately 14 weeks of gestation presented this morning with complaints of increasing vaginal bleeding and contractions. Ultrasound obtained revealed fetus in the lower uterine segment/vaginal vault. Patient had a moderate amount of bleeding upon presentation. Patient was admitted to labor and delivery for expectant management. Patient is counseled on options for analgesia including Stadol and epidural. Morphine was given with minimal relief in the ER.
--- NOTE | 2021-10-01 16:18 | P.PROBDLV ---
Vaginal Delivery Note - . Vaginal Delivery Note: This is a 21-year-old at 40-6/7 weeks that presented to labor and delivery from the emergency department with complaints of increased vaginal bleeding and contractions. Patient had a known large subchorionic hemorrhage. Patient states she started jose guadalupe/bleeding around 4:30 this morning. Patient was admitted to labor and delivery Stadol was given for pain minimal relief therefore epidural was placed by the anesthesia department. Once epidural was placed patient was much more comfortable, patient went on to deliver it a nonviable fetus at 1140, weight of 1 lb. 6 oz. placenta was then delivered at 1600 spontaneously intact. Uterus noted to be firm and minimal bleeding after delivery of the placenta. No lacerations were appreciated from delivery. Patient tolerated delivery well and is resting comfortably. She is very anxious for discharge home.
--- NOTE | 2021-10-01 16:22 | P.DS ---
Providers Date of admission: 10/01/21 08:50 Expected date of discharge: 10/01/21 Attending physician: Ayana Piña Primary care physician: Patti Prakash - Discharge Diagnosis(es) (1) Inevitable Current Visit: Yes Status: Acute (2) Subchorionic hemorrhage Current Visit: No Status: Acute (3) Spontaneous vaginal delivery Current Visit: Yes Status: Acute Hospital Course: This is a 21-year-old 2 para 0020 that presented to [facility] emergency department this morning with complaints of increased vaginal bleeding and contraction pain. Patient states she woke at 4 this morning with increased bleeding and pain. Patient has a known subchorionic hemorrhage that has been increasing in size. Patient has continued to pass clots and bleeding throughout the beginning part of . Patient was admitted to labor and delivery for inevitable miscarriage. Patient was quite uncomfortable therefore epidural was placed by the anesthesia department. Patient went on to deliver a nonviable fet us at 1140, weight of 1 lb. 6 oz., placenta delivered at 1600 spontaneously intact. Patient's bleeding is minimal, pain is well-controlled. Patient does wish discharge home. Patient Condition at Discharge: Good Plan - Discharge Summary New Discharge Prescriptions: No Action Ferrous Sulfate [Iron] 325 mg PO DAILY Discharge Medication List Ferrous Sulfate [Iron] 325 mg PO DAILY 10/01/21 [History] Follow up Appointment(s)/Referral(s): Ayana Piña DO [Doctor of Osteopathic Medicine] - 2 Weeks Discharge Disposition: HOME SELF-CARE
[2021-10-01 18:45] LABS: HCT 28.7 % (34.0-46.0); HGB 9.8 gm/dL (11.4-16.0); MCH 31.4 pg (25.0-35.0); MCV 92.2 fL (80.0-100.0); Mean Platelet Volume 8.2; Platelet Count 233 k/uL (150-450); RBC 3.12 m/uL (3.80-5.40); RDW 14.3 % (11.5-15.5); WBC 17.8 k/uL (4.0-11.0)
[2021-10-01 20:54] VITALS: TEMP 98.2
[2021-10-01 20:59] VITALS: RESP 16
== END 2021-10-01 19:30 | disposition home or self-care (01) ==
LOC: EC 05:41 → 4FBP 08:50 → INTOOBSV 08:50 → UNDODISIN 19:30
PROVIDERS: ADMIT Obstetrics & Gynecology Obstetrics; ATTEND Obstetrics & Gynecology Obstetrics
PROC: 10D17Z9 Manual Extraction of Products of Conception, Retained, Via Natural or Artificial Opening (ICD-10-PCS; principal; 2021-10-01)
DX: O03.4 Incomplete spontaneous abortion without complication (principal); F20.9 Schizophrenia, unspecified; F41.9 Anxiety disorder, unspecified; F31.9 Bipolar disorder, unspecified; Z88.0 Allergy status to penicillin; F17.290 Nicotine dependence, other tobacco product, uncomplicated; Z82.49 Family history of ischemic heart disease and other diseases of the circulatory system
CPT/HCPCS: 96375 ×2; 96376; 96361; 96374; 99285; 36415; 88305; 80048; 83615; 85025; 85027; 85610; 85730; 81001; 84702; 80306; 76856; 76830; 76801; G0378; J2270; J1200; J0595; J2405; J3010; J2795

== ENCOUNTER 2023-08-23 14:34 | Outpatient (CLI) | payer OTHER ==
[2023-08-23 15:32] VITALS: BP 120/66; PULSE 82; RESP 16; TEMP 97.7
--- NOTE | 2023-09-02 09:40 | P.MSEPDOC ---
Presenting Problems - Arrival Data Date of Arrival on Unit: 08/23/23 Time of Arrival on Unit: 14:34 Mode of Transport: Ambulatory - Complaint OB-Reason for Admission/Chief Complaint: Decreased Movement Medical History - Information : 5 Para: 0 Term: 0 : 0 Abortions: Spontaneous or Elective: 4 Number of Living Children: 0 - Gestational Age Gestational Age by [place] (wks/days): 36 Weeks and 1 Days - History Complications: Smoker Review of Systems - Review of Systems Constitutional: No problems Breast: No problems ENT: No problems Cardiovascular: No problems Respiratory: No problems Gastrointestinal: No problems Genitourinary: No problems Musculoskeletal: No problems Neurological: No problems Skin: No problems Vital Signs - Temperature Temperature: 97.7 F Temperature Source: Oral - Pulse Right Pulse Rate: 82 Pulse Assessment Method: Automatic Cuff - Respirations Respiratory Rate: 16 Oxygen Delivery Method: Room Air O2 Sat by Pulse Oximetry: 98 - Blood Pressure Right Arm Blood Pressure: 120/66 Blood Pressure Mean: 84 Blood Pressure Source: Automatic Cuff Medical Screen Scoring - Cervical Exam Dilation (cm): 0.5 Effacement (%): 50 Station: -2 Membranes: Intact - Assessment - Baby A Baseline FHR: 120 Heart Rate - NICHD Category: Category I (Normal) NST: Reactive Physician Notification - Physician Notified Physician Notified Date: 08/23/23 Physician Notified Time: 15:07 Physician: Ayana Piña New Order Received: Yes (discharge with instruction on Kick counts, no vaping and to keep appts) Maternal Triage Index - Maternal Triage Index Presenting for scheduled procedure w/no complaint: No - Stat/Priority 1 Stat Priority 1: No - Urgent/Priority 2 Urgent Priority 2: Yes Provider Notified: Ayana Piña Provider Notified Time: 15:07 Criteria Met for Priority 2: reactive NST here after Nonreactive in office Disposition - Disposition OB Disposition: Discharge to home Discharge Date: 08/23/23 Discharge Time: 15:10 I agree with the RN Medical Screening Exam: Yes Case reviewed; plan agreed upon as documented in EMR&OBIX.: Yes Diagnosis: DECREASED MOVEMENTS, THIRD TRIMESTER, FETUS 1
== END 2023-08-23 15:10 | disposition home or self-care (01) ==
LOC: FBPOP 14:34
PROVIDERS: ATTEND Obstetrics & Gynecology Obstetrics
DX: O36.8131 Decreased fetal movements, third trimester, fetus 1 (principal); O99.333 Smoking (tobacco) complicating pregnancy, third trimester; F17.200 Nicotine dependence, unspecified, uncomplicated; Z3A.36 36 weeks gestation of pregnancy; Z88.0 Allergy status to penicillin
CPT/HCPCS: 59025; G0463; 99213

== ENCOUNTER 2023-08-23 22:56 | Outpatient (CLI) | payer OTHER ==
[2023-08-23 23:55] VITALS: BP 116/55; PULSE 95; RESP 16; TEMP 97.8
--- NOTE | 2023-09-11 10:53 | P.MSEPDOC ---
Presenting Problems - Arrival Data Date of Arrival on Unit: 08/23/23 Time of Arrival on Unit: 22:56 Mode of Transport: Ambulatory - Complaint OB-Reason for Admission/Chief Complaint: Other Comment: pt states that she had some cramping and spotting after being checked in triage this afternoon. Medical History - Information : 5 Para: 0 Term: 0 : 0 Abortions: Spontaneous or Elective: 4 Number of Living Children: 0 - Gestational Age Gestational Age by [place] (wks/days): 36 Weeks and 1 Days - History Complications: Smoker Comment: cassie SEN Review of Systems - Review of Systems Constitutional: No problems Breast: No problems ENT: No problems Cardiovascular: No problems Respiratory: No problems Gastrointestinal: No problems Genitourinary: No problems Musculoskeletal: No problems Neurological: No problems Skin: No problems Vital Signs - Temperature Temperature: 97.8 F Temperature Source: Temporal Artery Scan - Pulse Pulse Oximetery Pulse Rate: 95 Pulse Assessment Method: Pulse Oximetry - Respirations Respiratory Rate: 16 Oxygen Delivery Method: Room Air O2 Sat by Pulse Oximetry: 98 - Blood Pressure Right Arm Blood Pressure: 116/55 Blood Pressure Mean: 75 Blood Pressure Source: Automatic Cuff Medical Screen Scoring - Cervical Exam Membranes: Intact - Uterine Contractions Resting: Soft to palpation - Assessment - Baby A Baseline FHR: 135 Heart Rate - NICHD Category: Category I (Normal) NST: Reactive Physician Notification - Physician Notified Physician Notified Date: 08/23/23 Physician Notified Time: 23:40 Physician: Luis Angel Holt Order Received: Yes (d/c home) Maternal Triage Index - Maternal Triage Index Presenting for scheduled procedure w/no complaint: No - Stat/Priority 1 Stat Priority 1: No - Urgent/Priority 2 Urgent Priority 2: No - Prompt/Priority 3 Prompt Priority 3: Yes Criteria Met for Priority 3: pt states that she is having discomfort and spotting after SVE in triage this afternoon Disposition - Disposition OB Disposition: Discharge to home Discharge Date: 08/23/23 Discharge Time: 23:44 I agree with the RN Medical Screening Exam: Yes Physician's MSE Comment: I have neither seen nor examined the patient. Case reviewed; plan agreed upon as documented in EMR&OBIX.: Yes Diagnosis: RELATED CONDITIONS, UNSPECIFIED, THIRD TRIMESTER
== END 2023-08-23 23:44 | disposition home or self-care (01) ==
LOC: FBPOP 22:56
PROVIDERS: ATTEND Obstetrics & Gynecology
DX: O26.853 Spotting complicating pregnancy, third trimester (principal); O99.333 Smoking (tobacco) complicating pregnancy, third trimester; F17.200 Nicotine dependence, unspecified, uncomplicated; Z3A.36 36 weeks gestation of pregnancy; Z88.0 Allergy status to penicillin
CPT/HCPCS: 59025; G0463; 99213

== ENCOUNTER 2023-08-29 16:46 | Inpatient (IN) | payer OTHER ==
[~2023-08-29 16:46] MED LIST: CARBOPROST TROMETHAMINE 250 MCG/ML 1 ML AMP IM PRN; LIDOCAINE 0.5% (PF) 5 MG/ML (50 ML SDV) SQ PRN; METHYLERGONOVINE 0.2 MG/ML 1 ML AMP IM PRN; OXYTOCIN 10 UNIT/ML 1 ML VIAL IM PRN; OXYTOCIN 30 UNITS/500 ML NS 30 UNIT in SALINE 1 500ML.BAG IV SCH; TERBUTALINE 1 MG/ML VIAL SQ PRN; TRANEXAMIC 1,000 MG/100ML-NACL 1,000 MG in EMPTY BAG 1 BAG IV PRN; miSOPROStoL 200 MCG TAB PO PRN; miSOPROStoL 200 MCG TAB RECTAL PRN
[2023-08-29] MEDS: DINOPROSTONE 10 MG INSERT.ER VAGINAL ONE (17:00)
[2023-08-29] MEDS: LACTATED RINGERS 1,000 ML IV SCH ×3 (17:07→21:17)
[2023-08-29 17:22] LABS: Anisocytosis Slight; Basophils % (A) 0 %; Eosinophils # (A) 0.1 k/uL (0-0.7); Eosinophils % (A) 1 %; HCT 26.6 % (34.0-46.0); HGB 8.2 gm/dL (11.4-16.0); Hypochromasia Marked; Lymphocytes # (A) 1.3 k/uL (1.0-4.8); Lymphocytes % (A) 15 %; MCH 21.9 pg (25.0-35.0); MCHC 30.7 g/dL (31.0-37.0); MCV 71.4 fL (80.0-100.0); Mean Platelet Volume 9.1; Microcytosis Moderate; Monocytes # (A) 0.5 k/uL (0-1.0); Monocytes % (A) 6 %; Neutrophils # (A) 6.6 k/uL (1.3-7.7); Neutrophils % (A) 77 %; Platelet Count 228 k/uL (150-450); Poikilocytosis Moderate; RBC 3.73 m/uL (3.80-5.40); WBC 8.6 k/uL (3.8-10.6)
[2023-08-29] MEDS ORDERED: CARBOPROST TROMETHAMINE 250 MCG/ML 1 ML AMP IM PRN (17:25)
[2023-08-29] MEDS ORDERED: TRANEXAMIC 1,000 MG/100ML-NACL 1,000 MG in EMPTY BAG 1 BAG IV PRN (17:25)
[2023-08-29] MEDS ORDERED: METHYLERGONOVINE 0.2 MG/ML 1 ML AMP IM PRN (17:25)
[2023-08-29] MEDS ORDERED: miSOPROStoL 200 MCG TAB PO PRN (17:25)
[2023-08-29] MEDS: CITRIC ACID-SODIUM CITRATE 15 ML CUP PO ONE (17:30)
--- NOTE | 2023-08-29 18:26 | P.HPOB ---
History of Present Illness H&P Date: 08/29/23 Chief Complaint: IUP at 37-1/7 weeks, intrauterine growth restriction 22-year-old 4 para 0030 at 37-1/7 weeks with good dating parameters presents to labor and delivery for induction of labor secondary to intrauterine growth restriction. Patient has been receiving routine care with myself and maternal- medicine. Growth ultrasounds were done every 4 weeks with estimated weight of less than the 1st percentile throughout, reassuring biophysical profile NST and UA Dopplers were appreciated throughout. Patient does admit to vaping consistently throughout the . Patient was urged to quit multiple times throughout the . Patient states she has noted movement today although it is "somewhat different". She denies contractions. She denies loss of fluid, vaginal bleeding. On blood work this patient is a blood type of O+, rubella status immune, hepatitis B surface engine negative, HIV negative, RPR is nonreactive, grew beta strep culture was negative. Review of Systems Constitutional: Denies chills, Denies fatigue, Denies fever Ears, nose, mouth and throat: Denies headache Respiratory: Denies dyspnea Gastrointestinal: Denies constipation, Denies diarrhea, Denies nausea, Denies vomiting Genitourinary: Reports Past Medical History Past Medical History: Asthma Additional Past Medical History / Comment(s): uterine tear History of Any Multi-Drug Resistant Organisms: None Reported Past Surgical History: No Surgical Hx Reported Past Anesthesia/Blood Transfusion Reactions: No Reported Reaction Smoking Status: Vaper - Past Family History Father Family Medical History: Hypertension Additional Family Medical History / Comment(s): heart murmur as child, bells palsy Medications and Allergies Home Medications Medication Instructions Recorded Confirmed Type Vit No.179/Iron/Folic 1 tab PO DAILY 08/08/23 08/29/23 History [ Tablet] Allergies Allergy/AdvReac Type Severity Reaction Status Date / Time Penicillins Allergy Rash/Hives Verified 08/29/23 16:51 Exam Osteopathic Statement: *. No significant issues noted on an osteopathic structural exam other than those noted in the History and Physical/Consult. Targeted physical exam is performed this date General is well-nourished well- developed female in no acute distress, breathing is nonlabored, heart has a regular rate and rhythm, abdomen is gravid, on cervical exam she is fingertip/50/-2 station, epidural is placed, essentially after Cervidil was placed a deceleration was noted for approximately 30 seconds down to the 70s return to baseline with minimal variability. After observation oxygen was placed, patient was moved to her left side. No change in heart tones status Results Result Diagrams: 08/29/23 17:10 Assessment and Plan (1) 37 weeks gestation of Current Visit: No Status: Acute Code(s): Z3A.37 - 37 WEEKS GESTATION OF SNOMED Code(s): 00635420 (2) Intrauterine growth restriction (IUGR) affecting care of mother Current Visit: No Status: Acute Code(s): O36.5990 - MATERN CARE FOR OTH OR SUSP POOR FETL GRTH, UNSP TRI, UNSP SNOMED Code(s): 855259928 Plan: 22-year-old G4, P0030 at 37 1/7 weeks, patient was initially scheduled for Cervidil induction but can nonreassuring status recommendation for primary is given. Patient and support person are counseled on primary C- section given nonreassuring status, patient states understanding and wishes to proceed. Discussed with patient given heart tones currently would unlikely tolerate labor contractions. Patient cervix is unfavorable and she is remote from delivery.
--- NOTE | 2023-08-29 18:29 | P.OP ---
Date of Procedure: 08/29/23 Preoperative Diagnosis: IUP at 37-1/7 weeks, severe IUGR, nonreassuring status remote from delivery Postoperative Diagnosis: Same Procedure(s) Performed: Primary low-transverse section Anesthesia: spinal Surgeon: Ayana Piña Curator Of Manuscripts #1: Brianna Knox Estimated Blood Loss (ml): 500 Urine output (ml): 100 (Clear yellow) Pathology: other (Placenta) Condition: stable Disposition: observation Indications for Procedure: 22-year-old 1 para 0 at 37-1/7 weeks presents to labor and delivery for Cervidil induction of labor. Soon after Cervidil was placed patient had a deceleration down to the 70s with return to baseline with minimal variability. O2 was placed and variability returned heart tones were discussed with patient and support person and they elected to proceed with primary . Operative Findings: Viable female infant delivered at 1800, weight of 3 pounds 15 ounces, Apgars of 7 and 9 at 1 and 5 minutes respectively. Normal uterus tubes and ovaries were appreciated. Clear amniotic fluid was noted upon entry into the uterus. Description of Procedure: The patient was prepped and draped in the usual fashion after spinal anesthesia was administered by the anesthesia department. She was noted to be significantly uncomfortable after spinal therefore general anesthesia was obtained without difficulty by the anesthesia department. A Pfannenstiel incision was made and extended of the abdominal cavity without difficulty. The bladder peritoneum was elevated and incised and reflected distally. A 2 cm incision was made in the transverse plane of the lower uterine segment to enter the uterus at which time clear fluid was noted. The incision was extended in both directions using the bandage scissors. The head was encountered within the field and delivered up and through the incision where the nose and mouth were thoroughly suctioned. Remainder of the was delivered onto the surgical field where the cord was doubly clamped, cut, and the infant was passed for resuscitative measures with weight and Apgars as noted above. The placenta was delivered manually, intact, and was grossly normal with a grossly normal three-vessel cord. The uterus was exteriorized and the interior cavity of the uterus swept of any remaining placental and membranous fragments with a laparotomy sponge. The margins of the incision were grasped with Allis clamps and the incision closed in 2 layers. First layer was a running locking layer of 0 Vicryl from margin to margin followed by a second layer of imbricating 0 Vicryl from margin to margin. Any small points of bleeding were then made hemostatic with the Bovie. Once hemostasis was achieved, the posterior cul-de-sac was suctioned with a guard and the uterine and ovarian findings are as noted above. The uterus was replaced within the abdominal cavity and the gutters swept of any remaining blood fluid or clot. The incision was again reexamined and hemostasis was noted to be excellent. Any small point of bleeding were made hemostatic with the Bovie. Once hemostasis was achieved the parietal peritoneum was loosely reapproximated. The layer of muscles were examined and made hemostatic with the Bovie. Attention was then turned to the fascia which was closed with 2 running stitches of 0 Vicryl proceeding from the lateral margins to the midpoint. The subcutaneous tissues were irrigated, made hemostatic with the Bovie, and reapproximated with a running stitch of 30 Vicryl. The skin was reapproximated with 4-0 Vicryl. Estimated blood loss for the case was approximately 500 mL. All sponge instrument and needle counts are correct. There were no complications. The patient tolerated the procedure well and proceeded to the recovery room in stable condition. Both mother and infant are resting comfortably in recovery.
[2023-08-29] MEDS ORDERED: ONDANSETRON 4 MG/2 ML VIAL IVP PRN ×2 (18:35→19:44)
[2023-08-29] MEDS ORDERED: ZOLPIDEM 5 MG TAB PO PRN ×2 (18:35→19:44)
[2023-08-29] MEDS ORDERED: METOCLOPRAMIDE 5 MG/ML 2 ML VIAL IVP PRN ×2 (18:35→19:44)
[2023-08-29] MEDS ORDERED: diphenhydrAMINE 50 MG CAP PO PRN ×2 (18:35→19:44)
[2023-08-29] MEDS ORDERED: diphenhydrAMINE 50 MG/ML 1 ML VIAL IVP PRN ×3 (18:35→19:44)
[2023-08-29] MEDS ORDERED: NALOXONE 0.4 MG/ML 1 ML VIAL IV PRN ×2 (18:35→19:44)
[2023-08-29] MEDS ORDERED: diphenhydrAMINE 25 MG CAP PO PRN ×2 (18:35→19:44)
[2023-08-29] MEDS: HYDROmorphone PCA 10 MG/50 ML BAG IV PRN (19:16)
[2023-08-29] MEDS ORDERED: OXYTOCIN 30 UNITS/500 ML NS 30 UNIT in SALINE 1 500ML.BAG IV SCH (19:44)
[2023-08-29] MEDS: ACETAMINOPHEN IV (For NPO) 1,000 MG in EMPTY BAG 1 BAG IVPB SCH (20:20)
[2023-08-29] MEDS: SENNOSIDES-DOCUSATE SODIUM 1 EACH TAB PO SCH ×2 (21:17)
[2023-08-29] MEDS: ACETAMINOPHEN TAB 500 MG TAB PO SCH (21:18)
[2023-08-29] MEDS: diphenhydrAMINE 50 MG/ML 1 ML VIAL IVP PRN (23:21)
[2023-08-30] MEDS: IBUPROFEN IV 800 MG in SODIUM CHLORIDE 0.9% 250 ML IV PRN (00:35)
[2023-08-30] MEDS: IBUPROFEN 600 MG TAB PO SCH (01:02)
[2023-08-30 07:11] LABS: Anisocytosis Slight; Basophils % (A) 0 %; Eosinophils % (A) 0 %; HGB 7.5 gm/dL (11.4-16.0); Hypochromasia Marked; Lymphocytes # (A) 2.1 k/uL (1.0-4.8); Lymphocytes % (A) 16 %; MCH 21.6 pg (25.0-35.0); Mean Platelet Volume 8.8; Microcytosis Moderate; Monocytes # (A) 0.6 k/uL (0-1.0); Monocytes % (A) 4 %; Neutrophils # (A) 10.1 k/uL (1.3-7.7); Neutrophils % (A) 78 %; Platelet Count 183 k/uL (150-450); Poikilocytosis Slight; RBC 3.47 m/uL (3.80-5.40); WBC 12.9 k/uL (3.8-10.6)
[2023-08-30] MEDS: PRENATAL VIT-IRON-FOLIC ACID 1 EACH TABLET PO SCH (08:31)
--- NOTE | 2023-08-30 08:39 | P.PNOBGPC ---
Subjective - Subjective Principal diagnosis: Postop day 1 Interval history: Patient is feeling well this morning. She did note increased pain last night with COMPLEX CARE NURSE, will transition to oral this morning. Ambulating and voiding without difficulty. Tolerating a regular diet without nausea or vomiting. Lochia is minimal. She is breast-feeding with some difficulty as the infant is tongue- tied Patient reports: Reports appetite normal, Reports voiding normally, Reports pain poorly controlled, Reports ambulating normally [place]: doing well, nursing well Objective - Vital Signs Latest vital signs: Vital Signs Temp Pulse Resp BP Pulse Ox 08/30/23 08:00 97.9 F 60 15 131/87 100 08/30/23 04:30 97.5 F L 54 L 16 117/73 99 08/30/23 00:30 98.2 F 58 L 16 120/75 100 08/29/23 22:35 16 08/29/23 20:35 99.2 F 68 16 115/81 99 08/29/23 20:20 68 16 112/78 99 08/29/23 20:05 67 16 113/67 100 08/29/23 19:50 103.3 F H 70 16 120/75 99 08/29/23 19:36 63 16 118/79 100 08/29/23 19:20 54 L 17 113/69 98 08/29/23 19:05 83 17 131/81 97 08/29/23 18:50 67 17 121/78 99 08/29/23 18:35 98.4 F 75 18 121/76 98 08/29/23 16:51 100.2 F H 88 16 109/59 99 Intake and Output 08/29/23 08/30/23 08/30/23 22:59 06:59 14:59 Intake Total 1000 Output Total 1457 950 Balance -457 -950 Intake: IV 1000 Output: Urine 900 950 Uretheral (Au) 600 Output, Quantitative 557 Blood Loss Other: Voiding Method Indwelling Catheter Weight 58.967 kg - Exam Extremities: Present: normal, edema Abdomen: Present: normal appearance Incision: Present: normal, dry, intact Uterus: Present: normal, firm - Labs Labs: Abnormal Lab Results - Last 24 Hours (Table) 08/29/23 08/30/23 Range/Units 17:10 06:48 WBC 12.9 H (3.8-10.6) k/uL RBC 3.73 L 3.47 L (3.80-5.40) m/uL Hgb 8.2 L 7.5 L (11.4-16.0) gm/dL Hct 26.6 L 25.0 L (34.0-46.0) % MCV 71.4 L 72.0 L (80.0-100.0) fL MCH 21.9 L 21.6 L (25.0-35.0) pg MCHC 30.7 L 30.0 L (31.0-37.0) g/dL RDW 18.0 H 18.0 H (11.5-15.5) % Neutrophils # 10.1 H (1.3-7.7) k/uL Assessment and Plan (1) 37 weeks gestation of Current Visit: No Status: Acute Code(s): Z3A.37 - 37 WEEKS GESTATION OF SNOMED Code(s): 80279476 (2) Intrauterine growth restriction (IUGR) affecting care of mother Current Visit: No Status: Acute Code(s): O36.5990 - MATERN CARE FOR OTH OR SUSP POOR FETL GRTH, UNSP TRI, UNSP SNOMED Code(s): 783335670 (3) Non-reassuring heart tones complicating , antepartum Current Visit: Yes Status: Acute Code(s): O36.8390 - MATERN CARE FOR ABNLT FETL HRT RATE OR RHYM, UNSP TRI, UNSP SNOMED Code(s): 728806424 (4) Status post primary low transverse section Current Visit: Yes Status: Acute Code(s): Z98.891 - HISTORY OF UTERINE SCAR FROM PREVIOUS SURGERY SNOMED Code(s): 773433770 Plan: Patient is doing well this morning. Will transition to oral pain medication. E ncourage increased ambulation. Continue routine postoperative care
[2023-08-30] MEDS ORDERED: ACETAMINOPHEN IV (For NPO) 1,000 MG in EMPTY BAG 1 BAG IVPB SCH (20:30)
[2023-08-30] MEDS: SIMETHICONE 80 MG CHEWABLE PO PRN (23:24)
[2023-08-30 23:26] VITALS: RESP 16
--- NOTE | 2023-08-31 08:39 | P.DS ---
Providers Date of admission: 08/29/23 16:46 Expected date of discharge: 08/31/23 Attending physician: Ayana Piña Primary care physician: Stated None - Discharge Diagnosis(es) (1) Status post primary low transverse section Current Visit: Yes Status: Acute Hospital Course: She presented for induction of labor. She underwent a primary low transverse C- section. Postoperative courses been uneventful. She denies nausea, vomiting, chest pain, shortness of breath or calf pain. Patient will be discharged home day #2 in stable condition to follow-up with Dr. piña in one-twe week. Plan - Discharge Summary New Discharge Prescriptions: No Action Vit No.179/Iron/Folic [ Tablet] 1 tab PO DAILY Discharge Medication List Vit No.179/Iron/Folic [ Tablet] 1 tab PO DAILY 08/08/23 [History] Follow up Appointment(s)/Referral(s): Ayana Piña DO [Doctor of Osteopathic Medicine] - 09/12/23 1:30 pm (Post appointment 10-05-2023 at 2:15pm) Discharge Disposition: HOME SELF-CARE
[2023-09-01 08:29] VITALS: BP 121/68; PULSE 63; TEMP 98.1
--- NOTE | 2023-09-01 13:23 | P.PNOBGPC ---
Subjective - Subjective Principal diagnosis: Stop day #3 status post primary NRFHTs Interval history: Patient is doing well postoperatively. She is ambulating and voiding without difficulty. Pediatrics has discharged baby and she wishes discharge home today. States pain is well-controlled with oral pain medication. Lochia is minimal to moderate. She is breast and bottlefeeding. Patient reports: Reports appetite normal, Reports voiding normally, Reports pain well controlled, Reports ambulating normally : doing well, nursing well, bottle feeding Objective - Vital Signs Latest vital signs: Vital Signs Temp Pulse Resp BP Pulse Ox 09/01/23 08:00 98.1 F 63 16 121/68 09/01/23 00:00 98.5 F 54 L 16 123/67 97 08/31/23 16:00 98.7 F 57 L 16 126/68 97 - Exam Extremities: Present: normal, edema Abdomen: Present: normal appearance, soft Incision: Present: normal, dry, intact Uterus: Present: normal, firm Assessment and Plan (1) 37 weeks gestation of Current Visit: No Status: Acute Code(s): Z3A.37 - 37 WEEKS GESTATION OF SNOMED Code(s): 76675169 (2) Intrauterine growth restriction (IUGR) affecting care of mother Current Visit: No Status: Acute Code(s): O36.5990 - MATERN CARE FOR OTH OR SUSP POOR FETL GRTH, UNSP TRI, UNSP SNOMED Code(s): 411096349 (3) Non-reassuring heart tones complicating , antepartum Current Visit: Yes Status: Acute Code(s): O36.8390 - MATERN CARE FOR ABNLT FETL HRT RATE OR RHYM, UNSP TRI, UNSP SNOMED Code(s): 645359975 (4) Status post primary low transverse section Current Visit: Yes Status: Acute Code(s): Z98.891 - HISTORY OF UTERINE SCAR FROM PREVIOUS SURGERY SNOMED Code(s): 469870092 Plan: 23-year-old G1 now P1 status post primary for nonreassuring heart tones. Patient was admitted initially for induction of labor secondary to severe IUGR with estimated weight less than the 1st percentile. Patient was admitted and Cervidil was placed soon after Cervidil was placed a deceleration of the heart tones was appreciated followed by category 3 tones no variability. Patient was counseled on heart tones and taken back for primary . Patient delivered a viable female on 1799, weight of 3 pounds 15 ounces. Patient's postoperative course was uneventful. On this postoperative day #3 she wishes discharge home. Patient will be discharged home in stable condition. Patient is to follow-up with myself in 2 weeks for routine incision check, patient has an appointment with Dr. Guo tomorrow for weight check.
== END 2023-09-01 14:46 | disposition home or self-care (01) | DRG 540 ==
LOC: 4FBP 16:46
PROVIDERS: ADMIT Obstetrics & Gynecology Obstetrics; ATTEND Obstetrics & Gynecology Obstetrics
PROC: 3E0P7VZ Introduction of Hormone into Female Reproductive, Via Natural or Artificial Opening (ICD-10-PCS; principal; 2023-08-29 17:00)
PROC: 10D00Z1 Extraction of Products of Conception, Low, Open Approach (ICD-10-PCS; principal; 2023-08-29 17:00)
DX: O36.5930 Maternal care for other known or suspected poor fetal growth, third trimester, not applicable or unspecified (principal); O76 Abnormality in fetal heart rate and rhythm complicating labor and delivery; O99.334 Smoking (tobacco) complicating childbirth; F17.290 Nicotine dependence, other tobacco product, uncomplicated; O99.52 Diseases of the respiratory system complicating childbirth; J45.909 Unspecified asthma, uncomplicated; Z88.0 Allergy status to penicillin; Z28.310 Unvaccinated for COVID-19; Z3A.37 37 weeks gestation of pregnancy; Z37.0 Single live birth
CPT/HCPCS: 85025; 86850; 86900; 86901; 88307